=== PATIENT | male | born 1955 | race Caucasian/White ===

== ENCOUNTER 2016-09-02 14:46 | Inpatient (IN) | payer OTHER ==
[2016-09-02] VITALS (8 sets, daily range): BP systolic 115–147; BP diastolic 55–73; PULSE 94–105; RESP 13–22; TEMP 96.9; Ht 182.9 cm; Wt 110.0 kg
[~2016-09-02] VITALS: Ht 182.9 cm; Wt 110.0 kg
[~2016-09-02 14:46] MED LIST: ADV25050 INH; ALBU18HF INHALATION; HYD25 PO; METH10TA2 PO; PRED20TA PO; Thiamine Hcl PO
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
[2016-09-02] MEDS ORDERED: ONDANSETRON 4 MG INJ IV STA (15:06)
[2016-09-02] MEDS ORDERED: SOD CHLORIDE 0.9% 1,000 ML IV ONE ×2 (15:30→16:00)
[2016-09-02 15:33] LABS: ADD SCAN DIFF NO
[2016-09-02 15:35] LABS: ABNORMAL IP MESSAGE 1; HEMATOCRIT 14.1 % (42.0-52.0); MEAN CORPUSCULAR HEMOGLOBIN 24.7 pg (29.0-33.0); MEAN CORPUSCULAR HGB CONC 28.4 g/dl (32.0-37.0); MEAN PLATELET VOLUME 13.4 fl (7.4-10.4); PLATELET COUNT 162 10^3/UL (140-415); RED BLOOD COUNT 1.62 10^6/ul (4.70-6.10); RED CELL DISTRIBUTION WIDTH 18.1 % (11.5-14.5); WHITE BLOOD COUNT 7.7 10^3/ul (4.8-10.8)
[2016-09-02] MEDS ORDERED: TAMS0.4C2 PO (15:36)
[2016-09-02] MEDS ORDERED: ALPR0.5T PO (15:36)
[2016-09-02] MEDS ORDERED: TRAM-40 PO (15:37)
[2016-09-02] MEDS ORDERED: FURO20TA3 PO (15:37)
[2016-09-02] MEDS ORDERED: VALS320T11 PO (15:40)
[2016-09-02] MEDS ORDERED: METO25TA7 PO (15:40)
[2016-09-02 15:45] LABS: INR 1.71; PROTIME 20.2 Sec (12.2-14.2); PT RATIO 1.6
[2016-09-02 15:57] LABS: ALBUMIN 2.2 g/dl (3.3-4.9); CHLORIDE 107 mmol/L (97-110)
[2016-09-02 15:58] LABS: POTASSIUM 4.9 mmol/L (3.5-5.1); SODIUM 142 mmol/L (135-144)
[2016-09-02 16:00] LABS: ALANINE AMINOTRANSFERASE 20 IU/L (13-69); ALBUMIN/GLOBULIN RATIO 0.66; ALKALINE PHOSPHATASE 67 IU/L (42-121); ANION GAP 19 (8-16); ASPARTATE AMINO TRANSFERASE 28 IU/L (15-46); BILIRUBIN,INDIRECT 0.4 mg/dl (0-1.1); BILIRUBIN,TOTAL 0.4 mg/dl (0.2-1.3); BLOOD UREA NITROGEN 22 mg/dl (7-20); CARBON DIOXIDE 21 mmol/L (21-31); CREATININE 0.92 mg/dl (0.61-1.24); GLUCOSE 149 mg/dl (70-220); TOTAL PROTEIN 5.5 g/dl (6.1-8.1)
[2016-09-02] MEDS ORDERED: LIDOCAINE 1% (MDV) 20 ML INJ SC ONE (16:00)
[2016-09-02 16:01] LABS: CALCIUM 7.8 mg/dl (8.4-10.2)
[2016-09-02 16:15] LABS: TROPONIN-I < 0.012 ng/ml (0.00-0.12)
[2016-09-02 16:31] LABS: BARBITURATES Negative (NEGATIVE); BENZODIAZEPINES Positive (NEGATIVE); CANNABINOIDS Negative (NEGATIVE); COCAINE Negative (NEGATIVE); OPIATES Positive (NEGATIVE)
[2016-09-02 16:31] LABS: ETHANOL < 10.0 mg/dl
[2016-09-02] MEDS ORDERED: OCTREOTIDE 50 MCG in SOD CHLORIDE 0.9% 25 ML IVPB STA (16:32)
[2016-09-02] MEDS ORDERED: PANTOPRAZOLE IV 80 MG in SOD CHLORIDE 0.9% 100 ML IV STA (16:32)
[2016-09-02] MEDS ORDERED: PANTOPRAZOLE IV 80 MG in SOD CHLORIDE 0.9% 100 ML IVPB STA (16:32)
[2016-09-02] MEDS ORDERED: OCTREOTIDE 500 MCG in SOD CHLORIDE 0.9% 49 ML IV STA (16:32)
[2016-09-02 16:42] LABS: LYMPHOCYTES # 0.8 10^3/ul (0.8-2.9); NEUTROPHIL # 6.9 10^3/ul (1.6-7.5)
[2016-09-02 16:46] LABS: ANISOCYTOSIS 2+; POIKILOCYTOSIS 1+
[2016-09-02 16:47] LABS: PLATELET ESTIMATE PLT APPEAR ADEQUATE; POLYCHROMASIA 1+
--- NOTE | 2016-09-02 17:30 | RADRPT ---
PROCEDURE: XR Chest. CLINICAL INDICATION: PICC line placement TECHNIQUE: Chest AP portable. COMPARISON: 09/16/2015 FINDINGS: Nasogastric tube in the stomach. Right arm PICC line with tip in mid superior vena cava. The mediastinal structures are unremarkable. There is calcification of the thoracic aorta (consiste nt with atherosclerosis). There is mild cardiomegaly. The pulmonary vascularity is normal. There are low lung volumes. There is bibasilar subsegmental atelectasis. The pleural spaces are unremarkabl e. There are senescent changes of the axial skeleton. IMPRESSION: Mild cardiomegaly Low lung volumes Bibasilar subsegmental atelectasis. Nasogastric tube in the stomach. Right arm PICC line with tip in mid superior vena cava RPTAT: HGDB .Mark Stephens MD, Date Time Electronically viewed and signed by .Mark Stephens MD, on 09/02/2016 17:29 .B/
--- NOTE | 2016-09-02 18:14 | RADRPT ---
PROCEDURE: Ultrasound guidance for placement of needle in right upper extremity vein. CLINICAL INDICATION: Venous access. TECHNIQUE: Limited sonography of the right upper extremity was performed. Ultrasound images were recorded and stored in the patient's medical record. COMPARISON: None. FINDINGS: The ultrasound images demonstrate a patent right upper extremity vein. The PICC line was inserted b y the PICC line nurse. IMPRESSION: 1. Ultrasound guidance for a needle placement in a right upper extremity vein. 2. The visualized right upper extremity vein is patent. RPTAT: QQ .Misha Dill MD, MD Date Time Electronically viewed and signed by .Misha Dill MD, MD on 09/02/2016 18:14 .R/
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
[2016-09-02] MEDS ORDERED: PROPOFOL 20 ML ONE ×2 (20:16)
[2016-09-02] MEDS ORDERED: LIDOCAINE 2% (SDV) 5 ML INJ ONE (20:17)
[2016-09-02] MEDS: PANTOPRAZOLE IV 80 MG in SOD CHLORIDE 0.9% 100 ML IV SCH (23:24)
[2016-09-02] MEDS: OCTREOTIDE 1 MG in SOD CHLORIDE 0.9% 95 ML IV SCH (23:24)
[2016-09-03] VITALS (36 sets, daily range): BP systolic 89–154; BP diastolic 45–108; PULSE 73–101; RESP 11–23
[2016-09-03] MEDS: METOCLOPRAMIDE 10 MG INJ IV SCH ×5 (01:26→23:50)
--- NOTE | 2016-09-03 03:48 | HP ---
DATE OF ADMISSION: 09/02/2016 REASON FOR ADMISSION: Low blood pressure, severe anemia. HISTORY OF PRESENT ILLNESS: This is a 61-year-old gentleman with a prior extensive history of alcoh ol abuse who comes in with marked weakness and malaise with black melenic stools with admission hemo globin of 4.0. Despite this, the patient was hemodynamically stable on admission. On further quest ioning, he has an extensive alcohol history and states he last drank approximately 1 year ago. Prio r to that, he had drank heavily. The last GI bleed, per patient, was 3 weeks ago, although he canno t recall which hospital he was seen at. In the emergency room, the patient had a PICC line placed a nd is currently in the process of receiving 4 units of packed red blood cells. In addition, Dr. David alicea has been contacted from GI service for emergent evaluation and likely endoscopy this evening. PAST MEDICAL HISTORY: Alcohol abuse, history of tobacco use, possible chronic obstructive pulmonary disease. MEDICATIONS: Per chart. ALLERGIES: NONE. SYSTEMS REVIEW: A 12-point review of systems is negative other than that mentioned above. PHYSICAL EXAMINATION: GENERAL: Elderly-appearing gentleman, awake, alert, oriented, talking in full and complete sentence s. VITAL SIGNS: Currently afebrile. Pulse is 100, blood pressure 92/60, O2 saturation 96% on room air . NECK: Supple. No JVD or lymphadenopathy. CARDIAC: S1, S2, no added sounds or murmurs. CHEST: Diminished air entry bilaterally. ABDOMEN: Soft, nontender. No guarding or rebound. EXTREMITIES: No cyanosis, clubbing, 1+ edema. NEUROLOGIC: Grossly intact. No focal deficits. LABORATORY DATA: White count 7.7, hemoglobin 4, platelets of 162. BUN 22, creatinine 0.92. INR wa s 1.7. Urine was positive for opiates and benzodiazepines. Stool occult blood is positive. DIAGNOSTIC DATA: Chest x-ray is pending at the time of this dictation. IMPRESSION: Acute gastrointestinal bleed, likely secondary to esophageal varices in a patient with an extensive tobacco history with probable cirrhosis with portal hypertension. THE PATIENT WILL NEED: 1. Aggressive volume resuscitation including IV fluids, packed red blood cells. 2. Octreotide drip. 3. Protonix drip. 4. Correction of elevated INR. 5. DVT and GI prophylaxis. 6. Obtain old notes from recent admission. Dictated By: CARINE SANCHES MD SV/ERICKA Conf#: [id number] DID#: [id number]
[2016-09-03 03:55] LABS: ADD SCAN DIFF NO
[2016-09-03 03:57] LABS: ABNORMAL IP MESSAGE 1; EOSINOPHILS % 0.1 % (0.0-7.0); HEMATOCRIT 17.1 % (42.0-52.0); LYMPHOCYTES # 2.1 10^3/ul (0.8-2.9); LYMPHOCYTES % 24.5 % (15.0-51.0); MEAN CORPUSCULAR HEMOGLOBIN 27.2 pg (29.0-33.0); MEAN CORPUSCULAR HGB CONC 32.2 g/dl (32.0-37.0); MEAN CORPUSCULAR VOLUME 84.7 fl (82.0-101.0); MEAN PLATELET VOLUME 13.3 fl (7.4-10.4); MONOCYTES % 11.8 % (0.0-11.0); NEUTROPHIL # 5.5 10^3/ul (1.6-7.5); NUCLEATED RED BLOOD CELLS% 0.2 /100WBC (0.0-0.0); PLATELET COUNT 93 10^3/UL (140-415); RED BLOOD COUNT 2.02 10^6/ul (4.70-6.10); RED CELL DISTRIBUTION WIDTH 16.2 % (11.5-14.5); WHITE BLOOD COUNT 8.7 10^3/ul (4.8-10.8)
[2016-09-03 04:00] LABS: HEMOGLOBIN 5.5 g/dl (14.0-18.0)
[2016-09-03 04:10] LABS: POTASSIUM 4.2 mmol/L (3.5-5.1)
[2016-09-03 04:12] LABS: CREATININE 0.85 mg/dl (0.61-1.24)
[2016-09-03 04:13] LABS: CALCIUM 7.5 mg/dl (8.4-10.2); PHOSPHORUS 3.2 mg/dl (2.5-4.9)
[2016-09-03] MEDS: PANTOPRAZOLE IV 80 MG in SOD CHLORIDE 0.9% 100 ML IV SCH ×3 (04:30→20:50)
[2016-09-03 04:52] LABS: INR 1.69; PT RATIO 1.6
[2016-09-03 04:53] LABS: PARTIAL THROMBOPLASTIN TIME 31.5 Sec (25.0-35.0); THROMBIN TIME 19.8 SEC (13.8-19.1)
--- NOTE | 2016-09-03 07:57 | RADRPT ---
PROCEDURE: XR Chest. CLINICAL INDICATION: copd TECHNIQUE: Portable single view of the chest COMPARISON: 09/02 FINDINGS: Nasogastric tube has been removed. Right PICC line remains in place. Cardiomegaly and aortic calci fication is again seen. Lung volumes are slightly reduced compared with prior. Pulmonary vascular congestion with probable interstitial edema is likely unchanged. No focal infiltrate or pleural eff usion. IMPRESSION: Removal of nasogastric tube. Otherwise likely no significant interval change. RPTAT: [facility] Physician Mariella Date Time Electronically viewed and signed by Polina Madera Physician on 09/03/2016 06:42 LE/
[2016-09-03 09:58] LABS: HEMATOCRIT 21.8 % (42.0-52.0); HEMOGLOBIN 7.3 g/dl (14.0-18.0)
--- NOTE | 2016-09-03 10:40 | PN ---
Date/Time of Note Date/Time of Note DATE: 09/03/16 TIME: 10:20 Assessment/Plan VTE Prophylaxis VTE Prophylaxis Intervention: SCD's Lines/Catheters IV C[facility]ter Type (from [facility]): Peripheral IV Urinary Cath still in place: Yes Reason Cath still needed: other (indicate) Assessment/Plan Chief Complaint/Hosp Course Assessment and plan 1. acute gastrointestinal bleed, likely secondary to esophageal varices in a patient with an extensive tobacco and alcohol consumption history with probable cirrhosis with portal hypertension Mattress Weaver has been consulted Status post upper EGD, continue Protonix and octreotide drip 2. Acute anemia Likely secondary to #1, status post transfusion of packed red blood cell, follow hemoglobin hematocrit status post transfusion 3. Alcohol dependency Alcohol cessation has been advised, we will place the patient on Ativan as needed 4. Acute encephalopathy Improved 5. Prerenal azotemia Likely secondary to GI bleed and anemia, continue IV fluid, follow-up renal panel 6. Essential hypertension. Continue to monitor 7. COPD Stable 8. Hypoalbuminemia Stable, continue to monitor We will continue monitor patient closely for recommendation management treatment as clinical course Problems: Subjective 24 Hr Interval Summary Free Text/Dictation Patient denies of any chest pain or shortness of breath Status post upper endoscopy No nausea vomiting On Protonix and octreotide Exam/Review of Systems Vital Signs Vitals Vital Signs Date Time Temp Pulse Resp B/P Pulse Ox O2 Delivery O2 Flow Rate FiO2 09/03/16 08:00 87 09/03/16 07:00 11 103/66 100 Nasal Cannula 09/03/16 04:00 98.8 09/02/16 22:00 4.0 Intake and Output 09/02/16 09/02/16 09/03/16 15:00 23:00 07:00 Intake Total 410 ml 105 ml Output Total 610 ml 460 ml Balance -200 ml -355 ml Exam General: The patient is well-developed, Not in acute distress. HEENT: Atraumatic, normocephalic. The pupils are equal and round . Neck: Supple with full range of motion. Chest: Normal expansion of the thorax during inspiration Lungs: Clear to auscultation bilaterally Heart: Normal S1-S2, Regular rhythm and rate. Abdomen: Soft , nontender, nondistended , bowel sounds are present. Extremities: Normal to inspection, no edema no cyanosis Neurologic: Normal mental status,The patient is awake, alert Results Result Diagram: 09/03/16 0936 09/03/16 0345 Results 24 hrs Laboratory Tests Test 09/02/16 15:19 09/02/16 15:20 09/02/16 15:30 09/02/16 20:20 Activated Partial Thromboplast Time 27.0 Alanine Aminotransferase (ALT/SGPT) 20 Albumin 2.2 L Albumin/Globulin Ratio 0.66 Alkaline Phosphatase 67 Anion Gap 19 H Anisocytosis 2+ Aspartate Amino Transf (AST/SGOT) 28 Blood Urea Nitrogen 22 H Calcium Level 7.8 L Carbon Dioxide Level 21 Chloride Level 107 Creatinine 0.92 Direct Bilirubin 0.00 Ethyl Alcohol Level < 10.0 Giant Platelets OCCASIONAL Globulin 3.30 H Glucose Level 149 Hematocrit 14.1 #L Hemoglobin 4.0 #*L INR International Normalized Ratio 1.71 Indirect Bilirubin 0.4 Large Platelets FEW Lipase 164 Lymphocytes # 0.8 Lymphocytes % 10.0 L Macrocytosis 1+ Mean Corpuscular Hemoglobin 24.7 L Mean Corpuscular Hemoglobin Concent 28.4 L Mean Corpuscular Volume 87.0 Mean Platelet Volume 13.4 #H Neutrophils # 6.9 Neutrophils % 90.0 H Platelet Count 162 Platelet Estimate PLT APPEAR ADEQUATE Poikilocytosis 1+ Polychromasia 1+ Potassium Level 4.9 Prothrombin Time 20.2 H Prothrombin Time Ratio 1.6 Red Blood Count 1.62 #L Red Cell Distribution Width 18.1 H Sodium Level 142 Total Bilirubin 0.4 Total Protein 5.5 L Troponin I < 0.012 White Blood Count 7.7 # Stool Occult Blood POSITIVE Urine Amphetamines Screen Negative Urine Barbiturates Negative Urine Benzodiazepines Screen Positive Urine Cannabinoids Negative Urine Cocaine Screen Negative Urine Opiates Screen Positive Ammonia 131 #H Test 09/03/16 03:45 09/03/16 09:36 Activated Partial Thromboplast Time 31.5 Anion Gap 12 # Basophils # 0.0 Basophils % 0.0 Blood Urea Nitrogen 25 H Calcium Level 7.5 L Carbon Dioxide Level 27 Chloride Level 109 Creatinine 0.85 Eosinophils # 0.0 Eosinophils % 0.1 Glucose Level 128 Hematocrit 17.1 #L 21.8 #L Hemoglobin 5.5 #*L 7.3 #L INR International Normalized Ratio 1.69 Lymphocytes # 2.1 Lymphocytes % 24.5 Magnesium Level 2.0 Mean Corpuscular Hemoglobin 27.2 L Mean Corpuscular Hemoglobin Concent 32.2 Mean Corpuscular Volume 84.7 Mean Platelet Volume 13.3 H Monocytes # 1.0 H Monocytes % 11.8 H Neutrophils # 5.5 Neutrophils % 63.0 Nucleated Red Blood Cells # 0.0 Nucleated Red Blood Cells % 0.2 H Phosphorus Level 3.2 Platelet Count 93 L Potassium Level 4.2 Prothrombin Time 20.0 H Prothrombin Time Ratio 1.6 Red Blood Count 2.02 #L Red Cell Distribution Width 16.2 H Sodium Level 144 Thrombin Time 19.8 H White Blood Count 8.7 Medications Medications Current Medications Octreotide Acetate 1 mg/ Sodium Chloride 100 ml @ 5 mls/hr Q20H IV Last administered on 09/02/16 23:24; Admin Dose 5 MLS/HR; Start 09/02/16 at 18:30 Pantoprazole/ Sodium Chloride (Protonix Iv/NS) 100 ml @ 10 mls/hr Q10H IV Last administered on 09/02/16 23:24; Admin Dose 10 MLS/HR; Start 09/02/16 at 18 :30 Metoclopramide HCl (Reglan) 10 mg Q6 IV Last administered on 09/03/16 06:00; Admin Dose 10 MG; Start 09/03/16 at 00:00 IV Flush (NS 10 ml) 10 ml PRN PRN IV IV PROTOCOL; Start 09/03/16 at 10:30; Status LINDA GILES MD Sep 03, 2016 10:40
--- NOTE | 2016-09-03 14:26 | PN ---
Date/Time of Note Date/Time of Note DATE: 09/03/16 TIME: 14:17 Assessment/Plan VTE Prophylaxis VTE Prophylaxis Intervention: SCD's Lines/Catheters IV Catheter Type (from Nrs): Peripheral IV Urinary Cath still in place: Yes Reason Cath still needed: other (indicate) (incontinence) Assessment/Plan Chief Complaint/Hosp Course 61 y/o male with history of COPD,chronic alcohol abuse(stopped drinking 1 year ago),who was seen at the ER because of weakness and hematemesis which started few hours prior to consult.In the ER patient had hematemesis approximately 800 cc.Patient presently is undergoing blood transfusion ,protonix and octreotide drip were started.Present hemoglobin is 4.Patient denies any hematochezia, dyspnea or melena Problems: Assessment/Plan Assessment Acute Anemia stable transfused 5 units of PRBC Upper GI bleed Esophageal varices Cirrhosis of liver Hypotension stable HX of COPD HX of Alcoholism Plan S/P EGD for colonoscopy Correct anemia Octreotide drip/protonix drip Monitor H and H q 6 Subjective 24 Hr Interval Summary Free Text/Dictation Course reviewed with nursing staff Patient is confused transfused total 6 units PRBC,latest hemoglobin 7.3 S/P EGD esophageal varices,old clots greater curvature no bleededs identified,no active bleeding still on protonix and octreotide drip.no hematocheizia,no hematemesis Exam/Review of Systems Vital Signs Vitals Vital Signs Date Time Temp Pulse Resp B/P Pulse Ox O2 Delivery O2 Flow Rate FiO2 09/03/16 12:00 82 09/03/16 10:00 14 123/63 100 Room Air 09/03/16 08:00 2.0 09/03/16 08:00 98.7 Intake and Output 09/02/16 09/02/16 09/03/16 15:00 23:00 07:00 Intake Total 410 ml 105 ml Output Total 610 ml 460 ml Balance -200 ml -355 ml Exam Constitutional: alert, oriented, well developed Psych: confused Head: atraumatic, normocephalic ENMT: other (NGT in placed) Neck: non-tender, supple Respiratory: clear to auscultation, normal air movement Cardiovascular: nl pulses, regular rate and rhythm Gastrointestinal: bowel sounds, nl liver, spleen, non-tender, soft, surgical scars (midline scar), No ascites, No firm, No hepatomegaly, No mass, No rebound or guarding Musculoskeletal: nl extremities to inspection, nl gait and stance Extremities: normal pulses Neurological: confused, Results Result Diagram: 09/03/16 0936 09/03/16 0345 Results 24 hrs Laboratory Tests Test 09/02/16 15:19 09/02/16 15:20 09/02/16 15:30 09/02/16 20:20 Activated Partial Thromboplast Time 27.0 Alanine Aminotransferase (ALT/SGPT) 20 Albumin 2.2 L Albumin/Globulin Ratio 0.66 Alkaline Phosphatase 67 Anion Gap 19 H Anisocytosis 2+ Aspartate Amino Transf (AST/SGOT) 28 Blood Urea Nitrogen 22 H Calcium Level 7.8 L Carbon Dioxide Level 21 Chloride Level 107 Creatinine 0.92 Direct Bilirubin 0.00 Ethyl Alcohol Level < 10.0 Giant Platelets OCCASIONAL Globulin 3.30 H Glucose Level 149 Hematocrit 14.1 #L Hemoglobin 4.0 #*L INR International Normalized Ratio 1.71 Indirect Bilirubin 0.4 Large Platelets FEW Lipase 164 Lymphocytes # 0.8 Lymphocytes % 10.0 L Macrocytosis 1+ Mean Corpuscular Hemoglobin 24.7 L Mean Corpuscular Hemoglobin Concent 28.4 L Mean Corpuscular Volume 87.0 Mean Platelet Volume 13.4 #H Neutrophils # 6.9 Neutrophils % 90.0 H Platelet Count 162 Platelet Estimate PLT APPEAR ADEQUATE Poikilocytosis 1+ Polychromasia 1+ Potassium Level 4.9 Prothrombin Time 20.2 H Prothrombin Time Ratio 1.6 Red Blood Count 1.62 #L Red Cell Distribution Width 18.1 H Sodium Level 142 Total Bilirubin 0.4 Total Protein 5.5 L Troponin I < 0.012 White Blood Count 7.7 # Stool Occult Blood POSITIVE Urine Amphetamines Screen Negative Urine Barbiturates Negative Urine Benzodiazepines Screen Positive Urine Cannabinoids Negative Urine Cocaine Screen Negative Urine Opiates Screen Positive Ammonia 131 #H Test 09/03/16 03:45 09/03/16 09:36 Activated Partial Thromboplast Time 31.5 Anion Gap 12 # Basophils # 0.0 Basophils % 0.0 Blood Urea Nitrogen 25 H Calcium Level 7.5 L Carbon Dioxide Level 27 Chloride Level 109 Creatinine 0.85 Eosinophils # 0.0 Eosinophils % 0.1 Glucose Level 128 Hematocrit 17.1 #L 21.8 #L Hemoglobin 5.5 #*L 7.3 #L INR International Normalized Ratio 1.69 Lymphocytes # 2.1 Lymphocytes % 24.5 Magnesium Level 2.0 Mean Corpuscular Hemoglobin 27.2 L Mean Corpuscular Hemoglobin Concent 32.2 Mean Corpuscular Volume 84.7 Mean Platelet Volume 13.3 H Monocytes # 1.0 H Monocytes % 11.8 H Neutrophils # 5.5 Neutrophils % 63.0 Nucleated Red Blood Cells # 0.0 Nucleated Red Blood Cells % 0.2 H Phosphorus Level 3.2 Platelet Count 93 L Potassium Level 4.2 Prothrombin Time 20.0 H Prothrombin Time Ratio 1.6 Red Blood Count 2.02 #L Red Cell Distribution Width 16.2 H Sodium Level 144 Thrombin Time 19.8 H White Blood Count 8.7 Medications Medications Current Medications Octreotide Acetate 1 mg/ Sodium Chloride 100 ml @ 5 mls/hr Q20H IV Last administered on 09/02/16 23:24; Admin Dose 5 MLS/HR; Start 09/02/16 at 18:30 Pantoprazole/ Sodium Chloride (Protonix Iv/NS) 100 ml @ 10 mls/hr Q10H IV Last administered on 09/03/16 13:48; Admin Dose 10 MLS/HR; Start 09/02/16 at 18 :30 Metoclopramide HCl (Reglan) 10 mg Q6 IV Last administered on 09/03/16 12:58; Admin Dose 10 MG; Start 09/03/16 at 00:00 IV Flush (NS 10 ml) 10 ml PRN PRN IV IV PROTOCOL; Start 09/03/16 at 10:30 Alprazolam (Xanax) 0.5 mg Q24H PRN PO ANXIETY; Start 09/03/16 at 10:30 Tamsulosin HCl 0.4 mg 0.4 mg DAILY PO ; Start 09/04/16 at 09:00 Multivitamins/ Thiamine HCl/ Folic Acid/Sodium Chloride (Mvi-12 Adult/ Vitamin B1/Folic Acid/NS) 1,011.2 ml @ 60 mls/hr DAILY@09 IVPB ; Start 09/04/16 at 09: 00 MILENA SPRINGER MD Sep 03, 2016 14:26
[2016-09-03 15:28] LABS: HEMATOCRIT 25.1 % (42.0-52.0); HEMOGLOBIN 8.4 g/dl (14.0-18.0)
[2016-09-03] MEDS ORDERED: PROPOFOL 0 ML ONE (15:40)
[2016-09-03] MEDS ORDERED: FENTAnyl 50 MCG/ML VIAL ONE (15:40)
[2016-09-03] MEDS: OCTREOTIDE 1 MG in SOD CHLORIDE 0.9% 95 ML IV SCH (19:00)
[2016-09-03 22:27] LABS: HEMATOCRIT 26.8 % (42.0-52.0); HEMOGLOBIN 8.9 g/dl (14.0-18.0)
[2016-09-04] VITALS (9 sets, daily range): BP systolic 126–150; BP diastolic 62–69; PULSE 83–98; RESP 16–20
[2016-09-04] MEDS: METOCLOPRAMIDE 10 MG INJ IV SCH ×3 (05:15→18:14)
--- NOTE | 2016-09-04 06:51 | GILP ---
DATE OF PROCEDURE: 09/02/2016 PROCEDURE: Emergency esophagogastroduodenoscopy BRIEF HISTORY AND INDICATIONS: The patient is being evaluated for hematemesis, new onset. Previous history of alcoholic liver disease. PREMEDICATION: Monitored anesthesia care by anesthesiologist. SURGEON: Milena Russo MD. INSTRUMENT USED: Olympus panendoscope. TECHNIQUE: After informed consent, with the patient/relatives understanding the procedure, its indic ations, potential risks and complications, including but not limited to: allergic reaction, bleeding , perforation or infection, and after all pertinent questions were answered to the patients satisfac tion, the patient/relatives signed witnessed informed consent. Following this, premedication was administered slowly IV push under careful cardiovascular and respi ratory monitoring with pulse oximetry, automatic blood pressure and youth nutritional monitor. Once the sedative effect was achieved the patient was place in the left lateral decubitus, the panen doscope was introduced and advanced under visual control. Careful examination of the upper gastrointestinal tract, both on insertion as well as withdrawal of the instrument disclosed the following findings: ESOPHAGUS: The distal esophagus shows grade I/IV esophageal varices with no stigmata of recent blee ding. STOMACH: Upon entrance to the stomach, air was insufflated, the gastric adam distended normally. There was a large amount of clots and old blood in the fundus of the stomach greater curvature which could not be suctioned out. No evidence of active bleeding or accumulation of blood is present. T he remainder of the gastric mucosa appears unremarkable with no ulcerations or any bleeding site dana ntified. PYLORUS: The pylorus is patent within normal limits. DUODENUM: The duodenal mucosa was carefully examined in the duodenal bulb as well as the second por tion of the duodenum and appears unremarkable with no evidence of duodenitis, ulcer or neoplasm. The instrument was then withdrawn, the patient tolerated the procedure well and was transfer out of the endoscopy suite awake, and in good condition to continue recovery under observation IMPRESSION: 1. Grade I/IV esophageal varices with no stigmata. 2. Old clots in the fundus of the stomach greater curvature obscure this area. No active accumulat ion of blood to suggest active bleeding is present. No bleeding lesion identified in the visualized upper gastrointestinal tract. PLAN: The patient will be continued with Protonix and octreotide drip, transfuse to a hemoglobin eq ual or higher than 7.5. Reglan will be added to his regimen. He will be reevaluated tomorrow. Dictated By: MILENA RUSSO MS/ERICKA Conf#: [id number] DID#: [id number]
[2016-09-04 07:35] LABS: HEMATOCRIT 26.6 % (42.0-52.0); HEMOGLOBIN 8.9 g/dl (14.0-18.0)
--- NOTE | 2016-09-04 07:47 | GILP ---
DATE OF PROCEDURE: 09/03/2016 DATE: 09/03/2016 NAME OF PROCEDURE: Esophagogastroduodenoscopy SURGEON: Milena Russo MD. HISTORY AND INDICATIONS: Patient with hematemesis yesterday and emergency endoscopy suboptimal due t o the presence of large amounts of blood and clots obscuring the greater curvature and fundus of the stomach. The patient was transfused and has stabilized. PREMEDICATION: Monitored anesthesia care by anesthesiologist. INSTRUMENT USED: Olympus endoscope. TECHNIQUE: After informed consent, with the patient/relatives understanding the procedure, its indic ations, potential risks and complications, including but not limited to: allergic reaction, bleeding , perforation or infection, and after all pertinent questions were answered to the patient's satisfa ction, the patient/relatives signed witnessed informed consent. Following this, premedication was administered slowly IV push under careful cardiovascular and respi ratory monitoring with pulse oximetry, automatic blood pressure and residential monitor. Once the sedative effect was achieved the patient was place in the left lateral decubitus, the panen doscope was introduced and advanced under visual control. Careful examination of the upper gastrointestinal tract, both on insertion as well as withdrawal of the instrument disclosed the following findings: ESOPHAGUS: The esophagus was remarkable for very small esophageal varices of no clinical significanc e. STOMACH: Upon entrance to the stomach air was insufflated, the gastric adam distended normally. At this time, the stomach is empty. Retroflexion disclosed the presence of large gastric varices. One of them has stigmata of recent bleeding. There is no active bleeding at the present time. The rem ainder of the stomach is unremarkable. PYLORUS: The pylorus appears patent and within normal limits, with no evidence of gastric outlet obs truction. DUODENUM: The duodenal mucosa was carefully examined in the duodenal bulb as well as the second port ion of the duodenum and appears unremarkable with no evidence of duodenitis, ulcer or neoplasm. The instrument was then withdrawn, the patient tolerated the procedure well and was transfer out of the endoscopy suite awake, and in good condition to continue recovery under observation IMPRESSION: 1. Large fundal gastric varices with stigmata of recent bleeding. 2. Small, clinically insignificant, esophageal varices. 3. No other potential bleeding source identified in the upper gastrointestinal tract. PLAN: The patient will be continued on present regimen with octreotide and Protonix drips. TIPS sh ould be considered; unfortunately is not available at [facility] at the present time. The p atient should be referred to a tertiary center for prophylactic TIPS as he has had at least 1 episod e of major gastrointestinal bleeding and the prognosis is extremely poor for additional episodes of gastric variceal bleeding which carry an extremely high mortality. Dictated By: MILENA WHEELER Conf#: [id number] DID#: [id number]
[2016-09-04] MEDS ORDERED: MULTIVITAMINS 10 ML, THIAMINE 100 MG, FOLIC ACID 1 MG in SOD CHLORIDE 0.9% 1,000 ML IVPB SCH (09:00)
[2016-09-04] MEDS: TAMSULOSIN (SR) 0.4 MG CAP PO SCH (09:00)
[2016-09-04 09:05] LABS: ADD SCAN DIFF NO
[2016-09-04 09:14] LABS: ALBUMIN 2.5 g/dl (3.3-4.9); POTASSIUM 3.6 mmol/L (3.5-5.1)
[2016-09-04 09:16] LABS: CREATININE 0.82 mg/dl (0.61-1.24)
[2016-09-04 09:17] LABS: ALBUMIN/GLOBULIN RATIO 0.73; BILIRUBIN,INDIRECT 1.4 mg/dl (0-1.1); BILIRUBIN,TOTAL 1.4 mg/dl (0.2-1.3); TOTAL PROTEIN 5.9 g/dl (6.1-8.1)
[2016-09-04 09:18] LABS: MAGNESIUM 2.1 mg/dl (1.7-2.5)
--- NOTE | 2016-09-04 09:23 | PN ---
Date/Time of Note Date/Time of Note DATE: 09/04/16 TIME: 09:10 Assessment/Plan VTE Prophylaxis VTE Prophylaxis Intervention: SCD's Lines/Catheters IV Catheter Type (from Nrsg): PICC Line Central line still needed: Yes Urinary Cath still in place: Yes Reason Cath still needed: other (indicate) (incontinent) Assessment/Plan Assessment/Plan Assessment Acute Anemia stable Hemoglobin 9.4 Upper GI bleed Esophageal varices grade 1/4 with no stigmata of bleeding Cirrhosis of liver EGD 09/03/16 Large fundal gastric varices with stigmata of recent bleeding.likely source of bleeding . Small, clinically insignificant, esophageal varices. No other potential bleeding source identified in the upper gastrointestinal trac HX of COPD HX of Alcoholism Plan Referral to tertiary hospital for TIPS Advance diet as tolerated Monitor H and H q 6 Subjective 24 Hr Interval Summary Free Text/Dictation Course reviewed with nursing staff Patient is confused episode of melena X1 but hemoglobin is 8.9 no hematemesis nor hematochezia EGD 09/03/16 Large fundal gastric varices with stigmata of recent bleeding. . Small, clinically insignificant, esophageal varices. No other potential bleeding source identified in the upper gastrointestinal tract. Exam/Review of Systems Vital Signs Vitals Vital Signs Date Time Temp Pulse Resp B/P Pulse Ox O2 Delivery O2 Flow Rate FiO2 09/04/16 08:21 97 09/04/16 04:00 99.0 16 126/69 97 09/04/16 00:00 Room Air 09/03/16 18:00 2.0 Intake and Output 09/03/16 09/03/16 09/04/16 15:00 23:00 07:00 Intake Total 700 ml 195 ml Output Total 1040 ml 300 ml Balance -340 ml -105 ml Exam Constitutional: awakeconfused, well developed Head: atraumatic, normocephalic ENMT: other (NGT in placed) Neck: non-tender, supple Respiratory: clear to auscultation, normal air movement Cardiovascular: nl pulses, regular rate and rhythm Gastrointestinal: bowel sounds, nl liver, spleen, non-tender, soft, surgical scars (midline scar), No ascites, No firm, No hepatomegaly, No mass, No rebound or guarding Musculoskeletal: nl extremities to inspection, nl gait and stance Extremities: normal pulses Neurological: confused, Results Result Diagram: 09/04/16 0655 09/03/16 0345 Results 24 hrs Laboratory Tests Test 09/03/16 09:36 09/03/16 14:55 09/03/16 22:05 09/04/16 06:55 Hematocrit 21.8 #L 25.1 L 26.8 L 26.6 L Hemoglobin 7.3 #L 8.4 L 8.9 L 8.9 L Medications Medications Current Medications Octreotide Acetate 1 mg/ Sodium Chloride 100 ml @ 5 mls/hr Q20H IV Last administered on 09/03/16 19:00; Admin Dose 5 MLS/HR; Start 09/02/16 at 18:30 Pantoprazole/ Sodium Chloride (Protonix Iv/NS) 100 ml @ 10 mls/hr Q10H IV Last administered on 09/03/16 20:50; Admin Dose 10 MLS/HR; Start 09/02/16 at 18 :30 Metoclopramide HCl (Reglan) 10 mg Q6 IV Last administered on 09/03/16 18:04; Admin Dose 10 MG; Start 09/03/16 at 00:00 IV Flush (NS 10 ml) 10 ml PRN PRN IV IV PROTOCOL; Start 09/03/16 at 10:30 Alprazolam (Xanax) 0.5 mg Q24H PRN PO ANXIETY; Start 09/03/16 at 10:30 Tamsulosin HCl 0.4 mg 0.4 mg DAILY PO ; Start 09/04/16 at 09:00 Multivitamins/ Thiamine HCl/ Folic Acid/Sodium Chloride (Mvi-12 Adult/ Vitamin B1/Folic Acid/NS) 1,011.2 ml @ 60 mls/hr DAILY@09 IVPB ; Start 09/04/16 at 09: 00 MILENA SPRINGER MD Sep 04, 2016 09:22 MILENA SPRINGER MD Sep 04, 2016 09:22
[2016-09-04 10:28] LABS: ABNORMAL IP MESSAGE 1; BASOPHILS % 0.3 % (0.0-2.0); EOSINOPHILS # 0.1 10^3/ul (0.0-0.5); EOSINOPHILS % 1.4 % (0.0-7.0); HEMATOCRIT 26.3 % (42.0-52.0); HEMOGLOBIN 8.9 g/dl (14.0-18.0); LYMPHOCYTES # 1.5 10^3/ul (0.8-2.9); LYMPHOCYTES % 20.7 % (15.0-51.0); MEAN CORPUSCULAR HEMOGLOBIN 28.5 pg (29.0-33.0); MEAN CORPUSCULAR HGB CONC 33.8 g/dl (32.0-37.0); MEAN CORPUSCULAR VOLUME 84.3 fl (82.0-101.0); MONOCYTE # 0.8 10^3/ul (0.3-0.9); MONOCYTES % 10.4 % (0.0-11.0); NEUTROPHIL # 4.7 10^3/ul (1.6-7.5); NUCLEATED RED BLOOD CELLS% 0.6 /100WBC (0.0-0.0); PLATELET COUNT 90 10^3/UL (140-415); RED BLOOD COUNT 3.12 10^6/ul (4.70-6.10); RED CELL DISTRIBUTION WIDTH 16.4 % (11.5-14.5); WHITE BLOOD COUNT 7.2 10^3/ul (4.8-10.8)
[2016-09-04 13:25] LABS: HEMATOCRIT 31.1 % (42.0-52.0)
--- NOTE | 2016-09-04 14:22 | PN ---
Date/Time of Note Date/Time of Note DATE: 09/04/16 TIME: 14:18 Assessment/Plan VTE Prophylaxis VTE Prophylaxis Intervention: other Lines/Catheters IV Catheter Type (from Nrs): PICC Line Central line still needed: Yes Urinary Cath still in place: Yes Reason Cath still needed: urinary retention Assessment/Plan Chief Complaint/Hosp Course Assessment and plan 1. acute gastrointestinal bleed, likely secondary to esophageal varices in a patient with an extensive tobacco and alcohol consumption history with probable cirrhosis with portal hypertension Bench Tool Maker has been consulted Status post upper EGD, continue Protonix and octreotide drip 2. Acute anemia Likely secondary to #1, status post transfusion of packed red blood cell, follow hemoglobin hematocrit status post transfusion 3. Alcohol dependency Alcohol cessation has been advised, continue on Ativan as needed 4. Acute encephalopathy Likely secondary to hepatic encephalopathy, started patient on lactulose, follow-up ammonia level 5. Essential hypertension. Continue to monitor 6. COPD Stable 7. Hypoalbuminemia Stable, continue to monitor We will continue monitor patient closely for recommendation management treatment as clinical course Problems: Subjective 24 Hr Interval Summary Free Text/Dictation Patient is altered and has required sitter Opens his eyes with touch stimuli Does not respond to verbal stimuli Exam/Review of Systems Vital Signs Vitals Vital Signs Date Time Temp Pulse Resp B/P Pulse Ox O2 Delivery O2 Flow Rate FiO2 09/04/16 12:16 87 09/04/16 04:00 99.0 16 126/69 97 09/04/16 00:00 Room Air 09/03/16 18:00 2.0 Intake and Output 09/03/16 09/03/16 09/04/16 15:00 23:00 07:00 Intake Total 700 ml 195 ml Output Total 1040 ml 300 ml Balance -340 ml -105 ml Exam General: The patient is altered although not agitated HEENT: Atraumatic, normocephalic. The pupils are equal and round . Neck: Supple with full range of motion. Chest: Normal expansion of the thorax during inspiration Lungs: Clear to auscultation bilaterally Heart: Normal S1-S2, Regular rhythm and rate. Abdomen: Soft , nontender, nondistended , bowel sounds are present. Extremities: Normal to inspection, no edema no cyanosis Neurologic: Encephalopathic,The patient is arousable Results Result Diagram: 09/04/16 1250 09/04/16 0655 Results 24 hrs Laboratory Tests Test 3/21/17 14:55 09/03/16 22:05 09/04/16 06:55 09/04/16 12:50 Hemoglobin 8.4 L 8.9 L 8.9 L 10.0 L Hematocrit 25.1 L 26.8 L 26.3 L 31.1 L White Blood Count 7.2 Red Blood Count 3.12 #L Mean Corpuscular Volume 84.3 Mean Corpuscular Hemoglobin 28.5 L Mean Corpuscular Hemoglobin Concent 33.8 Red Cell Distribution Width 16.4 H Platelet Count 90 L Mean Platelet Volume 12.0 H Neutrophils % 65.0 Lymphocytes % 20.7 Monocytes % 10.4 Eosinophils % 1.4 Basophils % 0.3 Nucleated Red Blood Cells % 0.6 H Neutrophils # 4.7 Lymphocytes # 1.5 Monocytes # 0.8 Eosinophils # 0.1 Basophils # 0.0 Nucleated Red Blood Cells # 0.0 Sodium Level 144 Potassium Level 3.6 Chloride Level 108 Carbon Dioxide Level 28 Anion Gap 12 Blood Urea Nitrogen 17 Creatinine 0.82 Glucose Level 109 Calcium Level 8.0 L Magnesium Level 2.1 Total Bilirubin 1.4 H Direct Bilirubin 0.00 Indirect Bilirubin 1.4 H Aspartate Amino Transf (AST/SGOT) 74 #H Alanine Aminotransferase (ALT/SGPT) 29 Alkaline Phosphatase 102 # Total Protein 5.9 L Albumin 2.5 L Globulin 3.40 H Albumin/Globulin Ratio 0.73 Medications Medications Current Medications Octreotide Acetate 1 mg/ Sodium Chloride 100 ml @ 5 mls/hr Q20H IV Last administered on 09/03/16 19:00; Admin Dose 5 MLS/HR; Start 09/02/16 at 18:30 Pantoprazole/ Sodium Chloride (Protonix Iv/NS) 100 ml @ 10 mls/hr Q10H IV Last administered on 09/03/16 20:50; Admin Dose 10 MLS/HR; Start 09/02/16 at 18 :30 Metoclopramide HCl (Reglan) 10 mg Q6 IV Last administered on 09/03/16 18:04; Admin Dose 10 MG; Start 09/03/16 at 00:00 IV Flush (NS 10 ml) 10 ml PRN PRN IV IV PROTOCOL; Start 09/03/16 at 10:30 Alprazolam (Xanax) 0.5 mg Q24H PRN PO ANXIETY; Start 09/03/16 at 10:30 Tamsulosin HCl 0.4 mg 0.4 mg DAILY PO ; Start 09/04/16 at 09:00 Multivitamins/ Thiamine HCl/ Folic Acid/Sodium Chloride (Mvi-12 Adult/ Vitamin B1/Folic Acid/NS) 1,011.2 ml @ 60 mls/hr DAILY@09 IVPB ; Start 09/04/16 at 09: 00 Lactulose (Lactulose Enema) 100 ml Q8 [place] ; Start 09/04/16 at 14:30; Stop at 09:00; Status UNV Chlordiazepoxide (Librium) 25 mg Q4H PRN PO AGITATION/ANXIETY; Start 09/04/16 at 14:30; Status UNV LINDA GUEVARA MD Sep 04, 2016 14:22
[2016-09-04] MEDS ORDERED: CHLORDIAZEPOXIDE 25 MG CAP PO PRN (14:30)
[2016-09-04] MEDS: LACTULOSE ENEMA 1,000 ML BTL PR SCH ×2 (16:31→20:30)
[2016-09-04] MEDS: PANTOPRAZOLE IV 80 MG in SOD CHLORIDE 0.9% 100 ML IV SCH ×2 (18:14→20:30)
[2016-09-04] MEDS: OCTREOTIDE 1 MG in SOD CHLORIDE 0.9% 95 ML IV SCH (18:14)
[2016-09-04 18:42] LABS: HEMATOCRIT 26.7 % (42.0-52.0)
[2016-09-04] MEDS: MULTIVITAMINS 10 ML, THIAMINE 100 MG, FOLIC ACID 1 MG in SOD CHLORIDE 0.9% 1,000 ML IVPB SCH (20:37)
[2016-09-05] VITALS (11 sets, daily range): BP systolic 132–188; BP diastolic 61–89; PULSE 72–106; RESP 18–19
[2016-09-05] MEDS: LORAZEPAM 2 MG INJ IV PRN ×3 (00:13→23:08)
[2016-09-05] MEDS: METOCLOPRAMIDE 10 MG INJ IV SCH ×4 (00:18→17:57)
[2016-09-05 00:57] LABS: HEMATOCRIT 26.8 % (42.0-52.0)
[2016-09-05] MEDS: PANTOPRAZOLE IV 80 MG in SOD CHLORIDE 0.9% 100 ML IV SCH ×2 (04:09→17:56)
[2016-09-05] MEDS: LACTULOSE ENEMA 1,000 ML BTL PR SCH ×3 (06:27→23:08)
[2016-09-05] MEDS: OCTREOTIDE 1 MG in SOD CHLORIDE 0.9% 95 ML IV SCH (06:30)
[2016-09-05 07:04] LABS: HEMATOCRIT 27.7 % (42.0-52.0); HEMOGLOBIN 9.1 g/dl (14.0-18.0)
[2016-09-05] MEDS: TAMSULOSIN (SR) 0.4 MG CAP PO SCH (09:00)
[2016-09-05 09:14] LABS: ALBUMIN 2.5 g/dl (3.3-4.9)
[2016-09-05 09:15] LABS: POTASSIUM 3.5 mmol/L (3.5-5.1)
[2016-09-05 09:17] LABS: BILIRUBIN,INDIRECT 1.5 mg/dl (0-1.1); BILIRUBIN,TOTAL 1.5 mg/dl (0.2-1.3); CREATININE 0.86 mg/dl (0.61-1.24)
[2016-09-05 09:18] LABS: ALBUMIN/GLOBULIN RATIO 0.71; CALCIUM 7.9 mg/dl (8.4-10.2)
[2016-09-05 09:23] LABS: ADD SCAN DIFF NO
[2016-09-05 09:27] LABS: BASOPHILS % 0.4 % (0.0-2.0); EOSINOPHILS # 0.2 10^3/ul (0.0-0.5); EOSINOPHILS % 2.5 % (0.0-7.0); HEMATOCRIT 27.6 % (42.0-52.0); HEMOGLOBIN 9.1 g/dl (14.0-18.0); LYMPHOCYTES # 1.9 10^3/ul (0.8-2.9); LYMPHOCYTES % 23.3 % (15.0-51.0); MEAN CORPUSCULAR HEMOGLOBIN 28.4 pg (29.0-33.0); MEAN CORPUSCULAR VOLUME 86.3 fl (82.0-101.0); MEAN PLATELET VOLUME 12.4 fl (7.4-10.4); MONOCYTE # 0.9 10^3/ul (0.3-0.9); MONOCYTES % 10.3 % (0.0-11.0); NEUTROPHIL # 5.2 10^3/ul (1.6-7.5); NEUTROPHILS % 62.7 % (39.0-77.0); PLATELET COUNT 117 10^3/UL (140-415); RED CELL DISTRIBUTION WIDTH 16.8 % (11.5-14.5); WHITE BLOOD COUNT 8.3 10^3/ul (4.8-10.8)
[2016-09-05 14:52] LABS: HEMATOCRIT 27.6 % (42.0-52.0); HEMOGLOBIN 9.1 g/dl (14.0-18.0)
--- NOTE | 2016-09-05 16:16 | PN ---
Date/Time of Note Date/Time of Note DATE: 09/05/16 TIME: 16:14 Assessment/Plan VTE Prophylaxis VTE Prophylaxis Intervention: SCD's Lines/Catheters IV Catheter Type (from Nrs): PICC Line Central line still needed: Yes Urinary Cath still in place: Yes Reason Cath still needed: other (indicate) Assessment/Plan Chief Complaint/Hosp Course Assessment and plan 1. acute gastrointestinal bleed, likely secondary to esophageal varices in a patient with an extensive tobacco and alcohol consumption history with probable cirrhosis with portal hypertension Monitoring Specialist has been consulted Status post upper EGD, continue Protonix and octreotide drip 2. Acute anemia Likely secondary to #1, status post transfusion of packed red blood cell, follow hemoglobin hematocrit status post transfusion 3. Alcohol dependency Alcohol cessation has been advised, continue on Ativan as needed 4. Acute encephalopathy likely secondary to hepatic encephalopathy, continue lactulose, follow-up ammonia level, improving 5. Essential hypertension. Continue to monitor 6. COPD Stable 7. Hypoalbuminemia Stable, continue to monitor We will continue monitor patient closely for recommendation management treatment as clinical course Problems: Subjective 24 Hr Interval Summary Free Text/Dictation Patient is more awake and alert Mildly confused Has not been able to tolerate p.o. intake Exam/Review of Systems Vital Signs Vitals Vital Signs Date Time Temp Pulse Resp B/P Pulse Ox O2 Delivery O2 Flow Rate FiO2 09/05/16 12:36 106 09/05/16 12:21 98.4 19 174/88 98 09/05/16 04:00 Room Air 09/03/16 18:00 2.0 Intake and Output 09/04/16 09/04/16 09/05/16 15:00 23:00 07:00 Intake Total 0 ml Output Total 100 ml Balance -100 ml Exam General: The patient is encephalopathic, Not in acute distress. HEENT: Atraumatic, normocephalic. The pupils are equal and round . Neck: Supple with full range of motion. Chest: Normal expansion of the thorax during inspiration Lungs: Clear to auscultation bilaterally Heart: Normal S1-S2, Regular rhythm and rate. Abdomen: Soft , nontender, nondistended , bowel sounds are present. Extremities: Normal to inspection, no edema no cyanosis Neurologic: Encephalopathy,The patient is awake, alert , oriented to self only Results Result Diagram: 09/05/16 1435 09/05/16 0615 Results 24 hrs Laboratory Tests Test 09/04/16 18:19 09/05/16 00:41 09/05/16 06:15 09/05/16 14:35 Hemoglobin 9.0 L 9.0 L 9.1 L 9.1 L Hematocrit 26.7 L 26.8 L 27.6 L 27.6 L White Blood Count 8.3 Red Blood Count 3.20 L Mean Corpuscular Volume 86.3 Mean Corpuscular Hemoglobin 28.4 L Mean Corpuscular Hemoglobin Concent 33.0 Red Cell Distribution Width 16.8 H Platelet Count 117 #L Mean Platelet Volume 12.4 H Neutrophils % 62.7 Lymphocytes % 23.3 Monocytes % 10.3 Eosinophils % 2.5 Basophils % 0.4 Nucleated Red Blood Cells % 0.0 Neutrophils # 5.2 Lymphocytes # 1.9 Monocytes # 0.9 Eosinophils # 0.2 Basophils # 0.0 Nucleated Red Blood Cells # 0.0 Sodium Level 144 Potassium Level 3.5 Chloride Level 110 Carbon Dioxide Level 24 Anion Gap 14 Blood Urea Nitrogen 14 Creatinine 0.86 Glucose Level 96 Calcium Level 7.9 L Total Bilirubin 1.5 H Direct Bilirubin 0.00 Indirect Bilirubin 1.5 H Aspartate Amino Transf (AST/SGOT) 37 Alanine Aminotransferase (ALT/SGPT) 32 Alkaline Phosphatase 90 Ammonia 16 # Total Protein 6.0 L Albumin 2.5 L Globulin 3.50 H Albumin/Globulin Ratio 0.71 Medications Medications Current Medications Octreotide Acetate 1 mg/ Sodium Chloride 100 ml @ 5 mls/hr Q20H IV Last administered on 09/04/16 18:14; Admin Dose 5 MLS/HR; Start 09/02/16 at 18:30 Pantoprazole/ Sodium Chloride (Protonix Iv/NS) 100 ml @ 10 mls/hr Q10H IV Last administered on 09/05/16 04:09; Admin Dose 10 MLS/HR; Start 09/02/16 at 18 :30 Metoclopramide HCl (Reglan) 10 mg Q6 IV Last administered on 09/05/16 12:48; Admin Dose 10 MG; Start 09/03/16 at 00:00 IV Flush (NS 10 ml) 10 ml PRN PRN IV IV PROTOCOL; Start 09/03/16 at 10:30 Alprazolam (Xanax) 0.5 mg Q24H PRN PO ANXIETY; Start 09/03/16 at 10:30 Tamsulosin HCl (Flomax) 0.4 mg DAILY PO ; Start 09/04/16 at 09:00 Lactulose (Lactulose Enema) 100 ml Q8 [place] Last administered on 09/05/16 14:30; Admin Dose 100 ML; Start 09/04/16 at 16:00; Stop 09/06/16 at 09:00 Chlordiazepoxide 25 mg 25 mg Q4H PRN PO AGITATION/ANXIETY; Start 09/04/16 at 14 :30 Multivitamins/ Thiamine HCl/ Folic Acid/Sodium Chloride (Mvi-12 Adult/ Vitamin B1/Folic Acid/NS) 1,011.2 ml @ 60 mls/hr Q24H IVPB Last administered on 20:37; Admin Dose 60 MLS/HR; Start 09/04/16 at 20:00 Lorazepam (Ativan) 1 mg Q6H PRN IV AGITATION Last administered on 09/05/16 05: 23; Admin Dose 1 MG; Start 09/05/16 at 00:00 LINDA GUEVARA MD Sep 05, 2016 16:16
--- NOTE | 2016-09-05 17:38 | CONS ---
Date/Time of Note Date/Time of Note DATE: 09/05/16 TIME: 17:15 Assessment/Plan Assessment/Plan Additional Assessment/Plan Acute anemia Evaluate GI bleed versus chronic iron deficiency vs other etiology Monitor H&H every 8 hours, transfuse 2 units for hemoglobin less than 7.5 Monitor labs Continue PPI and Octreotide drips EGD: 1. Large fundal gastric varices with stigmata of recent bleeding. 2. Small , clinically insignificant, esophageal varices. 3. No other potential bleeding source identified in the upper gastrointestinal tract. Liver cirrhosis TIPS should be considered; unfortunately is not available at [facility] at the present time. The patient should be referred to a tertiary center for prophylactic TIPS as he has had at least 1 episode of major gastrointestinal bleeding and the prognosis is extremely poor for additional episodes of gastric variceal bleeding which carry an extremely high mortality. Case management consult ordered History of COPD Management per Primary History of alcoholism Receiving banana bag Encourage abstinence Hepatic encephalopathy Continue lactulose enemas Monitor ammonia level Further recommendations depend on clinical course Patient seen in collaboration with Dr. Russo Consultation Date/Type/Reason Admit Date/Time Sep 02, 2016 at 18:10 Initial Consult Date Type of Consultation: Gastroenterology Reason for Consultation Anemia 24 HR Interval Summary Free Text/Dictation Hemoglobin stable Case management consult in process for possible TIPS Exam/Review of Systems Vital Signs Vitals Vital Signs Date Time Temp Pulse Resp B/P Pulse Ox O2 Delivery O2 Flow Rate FiO2 09/05/16 16:28 98.2 100 19 188/80 95 09/05/16 04:00 Room Air 09/03/16 18:00 2.0 Intake and Output 09/04/16 09/04/16 09/05/16 15:00 23:00 07:00 Intake Total 0 ml Output Total 100 ml Balance -100 ml Exam Constitutional: awake, agitated Psych: nl mood/affect Head: normocephalic Eyes: EOMI, nl conjunctiva, nl lids ENMT: nl external ears & nose, nl lips & teeth, nl nasal mucosa & septum Respiratory: clear to auscultation, normal air movement Cardiovascular: regular rate and rhythm Gastrointestinal: soft, non tender Musculoskeletal: nl extremities to inspection Neurological: APPOINTMENT MANAGER II-XII intact Results Result Diagram: 09/05/16 1435 09/05/16 0615 Results 24 hrs Laboratory Tests Test 09/04/16 18:19 09/05/16 00:41 09/05/16 06:15 09/05/16 14:35 Hemoglobin 9.0 L 9.0 L 9.1 L 9.1 L Hematocrit 26.7 L 26.8 L 27.6 L 27.6 L White Blood Count 8.3 Red Blood Count 3.20 L Mean Corpuscular Volume 86.3 Mean Corpuscular Hemoglobin 28.4 L Mean Corpuscular Hemoglobin Concent 33.0 Red Cell Distribution Width 16.8 H Platelet Count 117 #L Mean Platelet Volume 12.4 H Neutrophils % 62.7 Lymphocytes % 23.3 Monocytes % 10.3 Eosinophils % 2.5 Basophils % 0.4 Nucleated Red Blood Cells % 0.0 Neutrophils # 5.2 Lymphocytes # 1.9 Monocytes # 0.9 Eosinophils # 0.2 Basophils # 0.0 Nucleated Red Blood Cells # 0.0 Sodium Level 144 Potassium Level 3.5 Chloride Level 110 Carbon Dioxide Level 24 Anion Gap 14 Blood Urea Nitrogen 14 Creatinine 0.86 Glucose Level 96 Calcium Level 7.9 L Total Bilirubin 1.5 H Direct Bilirubin 0.00 Indirect Bilirubin 1.5 H Aspartate Amino Transf (AST/SGOT) 37 Alanine Aminotransferase (ALT/SGPT) 32 Alkaline Phosphatase 90 Ammonia 16 # Total Protein 6.0 L Albumin 2.5 L Globulin 3.50 H Albumin/Globulin Ratio 0.71 Medications Medications Current Medications Octreotide Acetate 1 mg/ Sodium Chloride 100 ml @ 5 mls/hr Q20H IV Last administered on 09/04/16 18:14; Admin Dose 5 MLS/HR; Start 09/02/16 at 18:30 Pantoprazole/ Sodium Chloride (Protonix Iv/NS) 100 ml @ 10 mls/hr Q10H IV Last administered on 09/05/16 04:09; Admin Dose 10 MLS/HR; Start 09/02/16 at 18 :30 Metoclopramide HCl (Reglan) 10 mg Q6 IV Last administered on 09/05/16 12:48; Admin Dose 10 MG; Start 09/03/16 at 00:00 IV Flush (NS 10 ml) 10 ml PRN PRN IV IV PROTOCOL; Start 09/03/16 at 10:30 Alprazolam (Xanax) 0.5 mg Q24H PRN PO ANXIETY; Start 09/03/16 at 10:30 Tamsulosin HCl (Flomax) 0.4 mg DAILY PO ; Start 09/04/16 at 09:00 Lactulose (Lactulose Enema) 100 ml Q8 [place] Last administered on 09/05/16 14:30; Admin Dose 100 ML; Start 09/04/16 at 16:00; Stop 09/06/16 at 09:00 Chlordiazepoxide 25 mg 25 mg Q4H PRN PO AGITATION/ANXIETY; Start 09/04/16 at 14 :30 Multivitamins/ Thiamine HCl/ Folic Acid/Sodium Chloride (Mvi-12 Adult/ Vitamin B1/Folic Acid/NS) 1,011.2 ml @ 60 mls/hr Q24H IVPB Last administered on 20:37; Admin Dose 60 MLS/HR; Start 09/04/16 at 20:00 Lorazepam (Ativan) 1 mg Q6H PRN IV AGITATION Last administered on 09/05/16 05: 23; Admin Dose 1 MG; Start 09/05/16 at 00:00 DAVE AYALA Sep 05, 2016 17:26 Pantoprazole/ Sodium Chloride (Protonix Iv/NS) 100 ml @ 10 mls/hr Q10H IV Last administered on 09/05/16 04:09; Admin Dose 10 MLS/HR; Start 09/02/16 at 18 :30 Metoclopramide HCl (Reglan) 10 mg Q6 IV Last administered on 09/05/16 12:48; Admin Dose 10 MG; Start 09/03/16 at 00:00 IV Flush (NS 10 ml) 10 ml PRN PRN IV IV PROTOCOL; Start 09/03/16 at 10:30 Alprazolam (Xanax) 0.5 mg Q24H PRN PO ANXIETY; Start 09/03/16 at 10:30 Tamsulosin HCl (Flomax) 0.4 mg DAILY PO ; Start 09/04/16 at 09:00 Lactulose (Lactulose Enema) 100 ml Q8 [place] Last administered on 09/05/16 14:30; Admin Dose 100 ML; Start 09/04/16 at 16:00; Stop 09/06/16 at 09:00 Chlordiazepoxide 25 mg 25 mg Q4H PRN PO AGITATION/ANXIETY; Start 09/04/16 at 14 :30 Multivitamins/ Thiamine HCl/ Folic Acid/Sodium Chloride (Mvi-12 Adult/ Vitamin B1/Folic Acid/NS) 1,011.2 ml @ 60 mls/hr Q24H IVPB Last administered on 20:37; Admin Dose 60 MLS/HR; Start 09/04/16 at 20:00 Lorazepam (Ativan) 1 mg Q6H PRN IV AGITATION Last administered on 09/05/16 05: 23; Admin Dose 1 MG; Start 09/05/16 at 00:00 DAVE AYALA Sep 05, 2016 17:26 DAVE AYALA Sep 05, 2016 17:26
[2016-09-05 18:11] LABS: HEMATOCRIT 28.7 % (42.0-52.0); HEMOGLOBIN 9.5 g/dl (14.0-18.0)
[2016-09-05] MEDS: MULTIVITAMINS 10 ML, THIAMINE 100 MG, FOLIC ACID 1 MG in SOD CHLORIDE 0.9% 1,000 ML IVPB SCH (20:37)
[2016-09-06] VITALS (12 sets, daily range): BP systolic 103–151; BP diastolic 56–76; PULSE 90–105; RESP 18–20
[2016-09-06] MEDS: METOCLOPRAMIDE 10 MG INJ IV SCH ×4 (00:59→18:12)
[2016-09-06] MEDS: OCTREOTIDE 1 MG in SOD CHLORIDE 0.9% 95 ML IV SCH ×2 (02:30→08:29)
[2016-09-06] MEDS: LORAZEPAM 2 MG INJ IV PRN (02:53)
[2016-09-06] MEDS: PANTOPRAZOLE IV 80 MG in SOD CHLORIDE 0.9% 100 ML IV SCH ×3 (03:00→22:30)
[2016-09-06] MEDS: LACTULOSE ENEMA 1,000 ML BTL PR SCH (08:28)
[2016-09-06] MEDS: TAMSULOSIN (SR) 0.4 MG CAP PO SCH (08:28)
[2016-09-06 09:11] LABS: ADD SCAN DIFF NO
[2016-09-06 09:15] LABS: BASOPHILS % 0.4 % (0.0-2.0); EOSINOPHILS # 0.3 10^3/ul (0.0-0.5); EOSINOPHILS % 3.4 % (0.0-7.0); HEMATOCRIT 28.3 % (42.0-52.0); HEMOGLOBIN 9.2 g/dl (14.0-18.0); LYMPHOCYTES # 1.9 10^3/ul (0.8-2.9); LYMPHOCYTES % 23.5 % (15.0-51.0); MEAN CORPUSCULAR HEMOGLOBIN 28.2 pg (29.0-33.0); MEAN CORPUSCULAR HGB CONC 32.5 g/dl (32.0-37.0); MEAN CORPUSCULAR VOLUME 86.8 fl (82.0-101.0); MEAN PLATELET VOLUME 11.6 fl (7.4-10.4); MONOCYTE # 0.8 10^3/ul (0.3-0.9); NEUTROPHIL # 5.1 10^3/ul (1.6-7.5); NEUTROPHILS % 62.2 % (39.0-77.0); PLATELET COUNT 118 10^3/UL (140-415); RED BLOOD COUNT 3.26 10^6/ul (4.70-6.10); RED CELL DISTRIBUTION WIDTH 17.9 % (11.5-14.5); WHITE BLOOD COUNT 8.1 10^3/ul (4.8-10.8)
[2016-09-06 09:32] LABS: ALBUMIN 2.6 g/dl (3.3-4.9); POTASSIUM 3.2 mmol/L (3.5-5.1)
[2016-09-06 09:34] LABS: BILIRUBIN,INDIRECT 2.1 mg/dl (0-1.1); BILIRUBIN,TOTAL 2.1 mg/dl (0.2-1.3); CREATININE 0.78 mg/dl (0.61-1.24)
[2016-09-06 09:35] LABS: ALBUMIN/GLOBULIN RATIO 0.76
[2016-09-06 09:36] LABS: CALCIUM 7.9 mg/dl (8.4-10.2)
--- NOTE | 2016-09-06 11:12 | CONS ---
Date/Time of Note Date/Time of Note DATE: 09/06/16 TIME: 11:09 Assessment/Plan Assessment/Plan Additional Assessment/Plan Acute anemia Evaluate GI bleed versus chronic iron deficiency vs other etiology Monitor H&H every 8 hours, transfuse 2 units for hemoglobin less than 7.5 Monitor labs Continue PPI and Octreotide drips EGD: 1. Large fundal gastric varices with stigmata of recent bleeding. 2. Small , clinically insignificant, esophageal varices. 3. No other potential bleeding source identified in the upper gastrointestinal tract. Liver cirrhosis TIPS should be considered; unfortunately is not available at [facility] at the present time. The patient should be referred to a tertiary center for prophylactic TIPS as he has had at least 1 episode of major gastrointestinal bleeding and the prognosis is extremely poor for additional episodes of gastric variceal bleeding which carry an extremely high mortality. Case management consult ordered History of COPD Management per Primary History of alcoholism Receiving banana bag Encourage abstinence Hepatic encephalopathy Monitor ammonia level Further recommendations depend on clinical course Patient seen in collaboration with Dr. Russo Consultation Date/Type/Reason Admit Date/Time Sep 02, 2016 at 18:10 Type of Consultation: Gastroenterology 24 HR Interval Summary Free Text/Dictation Tolerating diet Advance to soft Ammonia within normal limits, lactulose enema DC Exam/Review of Systems Vital Signs Vitals Vital Signs Date Time Temp Pulse Resp B/P Pulse Ox O2 Delivery O2 Flow Rate FiO2 09/06/16 08:16 102 09/06/16 08:06 98.0 20 130/63 98 09/06/16 00:15 Room Air 09/03/16 18:00 2.0 Intake and Output 09/05/16 09/05/16 09/06/16 15:00 23:00 07:00 Intake Total 0 ml 525 ml Output Total 150 ml 300 ml 650 ml Balance -150 ml -300 ml -125 ml Exam Constitutional: Asleep, NAD Psych: nl mood/affect Head: normocephalic Eyes: EOMI, nl conjunctiva, nl lids ENMT: nl external ears & nose, nl lips & teeth, nl nasal mucosa & septum Respiratory: clear to auscultation, normal air movement Cardiovascular: regular rate and rhythm Gastrointestinal: soft, non tender Musculoskeletal: nl extremities to inspection Neurological: FINAL TOUCH UP PAINTER II-XII intact Results Result Diagram: 09/06/16 0900 09/06/16 0900 Results 24 hrs Laboratory Tests Test 09/05/16 14:35 09/05/16 18:00 09/06/16 09:00 Hemoglobin 9.1 L 9.5 L 9.2 L Hematocrit 27.6 L 28.7 L 28.3 L White Blood Count 8.1 Red Blood Count 3.26 L Mean Corpuscular Volume 86.8 Mean Corpuscular Hemoglobin 28.2 L Mean Corpuscular Hemoglobin Concent 32.5 Red Cell Distribution Width 17.9 H Platelet Count 118 L Mean Platelet Volume 11.6 H Neutrophils % 62.2 Lymphocytes % 23.5 Monocytes % 10.0 Eosinophils % 3.4 Basophils % 0.4 Nucleated Red Blood Cells % 0.0 Neutrophils # 5.1 Lymphocytes # 1.9 Monocytes # 0.8 Eosinophils # 0.3 Basophils # 0.0 Nucleated Red Blood Cells # 0.0 Sodium Level 141 Potassium Level 3.2 L Chloride Level 105 Carbon Dioxide Level 24 Anion Gap 15 Blood Urea Nitrogen 7 Creatinine 0.78 Glucose Level 147 # Calcium Level 7.9 L Total Bilirubin 2.1 H Direct Bilirubin 0.00 Indirect Bilirubin 2.1 H Aspartate Amino Transf (AST/SGOT) 36 Alanine Aminotransferase (ALT/SGPT) 29 Alkaline Phosphatase 89 Ammonia 26 Total Protein 6.0 L Albumin 2.6 L Globulin 3.40 H Albumin/Globulin Ratio 0.76 Medications Medications Current Medications Octreotide Acetate 1 mg/ Sodium Chloride 100 ml @ 5 mls/hr Q20H IV Last administered on 09/06/16 08:29; Admin Dose 5 MLS/HR; Start 09/02/16 at 18:30 Pantoprazole/ Sodium Chloride (Protonix Iv/NS) 100 ml @ 10 mls/hr Q10H IV Last administered on 09/06/16 03:00; Admin Dose 10 MLS/HR; Start 09/02/16 at 18 :30 Metoclopramide HCl (Reglan) 10 mg Q6 IV Last administered on 09/06/16 07:35; Admin Dose 10 MG; Start 09/03/16 at 00:00 IV Flush (NS 10 ml) 10 ml PRN PRN IV IV PROTOCOL; Start 09/03/16 at 10:30 Alprazolam (Xanax) 0.5 mg Q24H PRN PO ANXIETY; Start 09/03/16 at 10:30 Tamsulosin HCl (Flomax) 0.4 mg DAILY PO Last administered on 09/06/16 08:28; Admin Dose 0.4 MG; Start 09/04/16 at 09:00 Chlordiazepoxide 25 mg 25 mg Q4H PRN PO AGITATION/ANXIETY; Start 09/04/16 at 14 :30 Multivitamins/ Thiamine HCl/ Folic Acid/Sodium Chloride (Mvi-12 Adult/ Vitamin B1/Folic Acid/NS) 1,011.2 ml @ 60 mls/hr Q24H IVPB Last administered on 20:37; Admin Dose 60 MLS/HR; Start 09/04/16 at 20:00 Lorazepam (Ativan) 1 mg Q6H PRN IV AGITATION Last administered on 09/06/16 02: 53; Admin Dose 1 MG; Start 09/05/16 at 00:00 DAVE AYALA Sep 06, 2016 11:12
[2016-09-06] MEDS: RIFAXIMIN 550 MG TAB PO SCH ×2 (11:58→21:05)
--- NOTE | 2016-09-06 15:20 | PN ---
Date/Time of Note Date/Time of Note DATE: 09/06/16 TIME: 15:17 Assessment/Plan VTE Prophylaxis VTE Prophylaxis Intervention: SCD's Lines/Catheters IV Catheter Type (from Nrs): PICC Line Central line still needed: Yes Urinary Cath still in place: Yes Reason Cath still needed: other (indicate) Assessment/Plan Chief Complaint/Hosp Course Assessment and plan 1. acute gastrointestinal bleed, likely secondary to esophageal varices in a patient with an extensive tobacco and alcohol consumption history with probable cirrhosis with portal hypertension Truck Driver Instructor has been consulted Status post upper EGD, continue Protonix 2. Acute anemia Likely secondary to #1, status post transfusion of packed red blood cell, follow hemoglobin hematocrit status post transfusion 3. Alcohol dependency Alcohol cessation has been advised, continue on Ativan as needed 4. Acute encephalopathy likely secondary to hepatic encephalopathy, continue lactulose, follow-up ammonia level, improving 5. Essential hypertension. Continue to monitor 6. COPD Stable 7. Hypoalbuminemia Stable, continue to monitor We will continue monitor patient closely for recommendation management treatment as clinical course Problems: Subjective 24 Hr Interval Summary Free Text/Dictation Patient denies of any chest pain or shortness of breath Continues to have episodes of altered mental status Exam/Review of Systems Vital Signs Vitals Vital Signs Date Time Temp Pulse Resp B/P Pulse Ox O2 Delivery O2 Flow Rate FiO2 09/06/16 12:27 103 09/06/16 12:13 97.8 20 137/68 98 09/06/16 00:15 Room Air 09/03/16 18:00 2.0 Intake and Output 09/05/16 09/05/16 09/06/16 15:00 23:00 07:00 Intake Total 0 ml 525 ml Output Total 150 ml 300 ml 650 ml Balance -150 ml -300 ml -125 ml Exam General: The patient is well-developed, Not in acute distress. HEENT: Atraumatic, normocephalic. The pupils are equal and round . Neck: Supple with full range of motion. Chest: Normal expansion of the thorax during inspiration Lungs: Clear to auscultation bilaterally Heart: Normal S1-S2, Regular rhythm and rate. Abdomen: Soft , nontender, nondistended , bowel sounds are present. Extremities: Normal to inspection, no edema no cyanosis Neurologic: ,The patient is awake, alert, follow simple commands Results Result Diagram: 09/06/16 0900 09/06/16 0900 Results 24 hrs Laboratory Tests Test 09/05/16 18:00 09/06/16 09:00 Hemoglobin 9.5 L 9.2 L Hematocrit 28.7 L 28.3 L White Blood Count 8.1 Red Blood Count 3.26 L Mean Corpuscular Volume 86.8 Mean Corpuscular Hemoglobin 28.2 L Mean Corpuscular Hemoglobin Concent 32.5 Red Cell Distribution Width 17.9 H Platelet Count 118 L Mean Platelet Volume 11.6 H Neutrophils % 62.2 Lymphocytes % 23.5 Monocytes % 10.0 Eosinophils % 3.4 Basophils % 0.4 Nucleated Red Blood Cells % 0.0 Neutrophils # 5.1 Lymphocytes # 1.9 Monocytes # 0.8 Eosinophils # 0.3 Basophils # 0.0 Nucleated Red Blood Cells # 0.0 Sodium Level 141 Potassium Level 3.2 L Chloride Level 105 Carbon Dioxide Level 24 Anion Gap 15 Blood Urea Nitrogen 7 Creatinine 0.78 Glucose Level 147 # Calcium Level 7.9 L Total Bilirubin 2.1 H Direct Bilirubin 0.00 Indirect Bilirubin 2.1 H Aspartate Amino Transf (AST/SGOT) 36 Alanine Aminotransferase (ALT/SGPT) 29 Alkaline Phosphatase 89 Ammonia 26 Total Protein 6.0 L Albumin 2.6 L Globulin 3.40 H Albumin/Globulin Ratio 0.76 Medications Medications Current Medications Octreotide Acetate 1 mg/ Sodium Chloride 100 ml @ 5 mls/hr Q20H IV Last administered on 09/06/16 08:29; Admin Dose 5 MLS/HR; Start 09/02/16 at 18:30 Pantoprazole/ Sodium Chloride (Protonix Iv/NS) 100 ml @ 10 mls/hr Q10H IV Last administered on 09/06/16 03:00; Admin Dose 10 MLS/HR; Start 09/02/16 at 18 :30 Metoclopramide HCl (Reglan) 10 mg Q6 IV Last administered on 09/06/16 11:58; Admin Dose 10 MG; Start 09/03/16 at 00:00 IV Flush (NS 10 ml) 10 ml PRN PRN IV IV PROTOCOL; Start 09/03/16 at 10:30 Alprazolam (Xanax) 0.5 mg Q24H PRN PO ANXIETY; Start 09/03/16 at 10:30 Tamsulosin HCl (Flomax) 0.4 mg DAILY PO Last administered on 09/06/16 08:28; Admin Dose 0.4 MG; Start 09/04/16 at 09:00 Chlordiazepoxide 25 mg 25 mg Q4H PRN PO AGITATION/ANXIETY; Start 09/04/16 at 14 :30 Multivitamins/ Thiamine HCl/ Folic Acid/Sodium Chloride (Mvi-12 Adult/ Vitamin B1/Folic Acid/NS) 1,011.2 ml @ 60 mls/hr Q24H IVPB Last administered on 20:37; Admin Dose 60 MLS/HR; Start 09/04/16 at 20:00 Lorazepam (Ativan) 1 mg Q6H PRN IV AGITATION Last administered on 09/06/16 02: 53; Admin Dose 1 MG; Start 09/05/16 at 00:00 Rifaximin (Xifaxan) 550 mg BID PO Last administered on 09/06/16 11:58; Admin Dose 550 MG; Start 09/06/16 at 11:30 LINDA GUEVARA MD Sep 06, 2016 15:20
[2016-09-06] MEDS: MULTIVITAMINS 10 ML, THIAMINE 100 MG, FOLIC ACID 1 MG in SOD CHLORIDE 0.9% 1,000 ML IVPB SCH (20:43)
[2016-09-07] VITALS (11 sets, daily range): BP systolic 114–162; BP diastolic 55–70; PULSE 83–100; RESP 16–19
[2016-09-07] MEDS: METOCLOPRAMIDE 10 MG INJ IV SCH ×4 (00:16→18:41)
[2016-09-07] MEDS: LORAZEPAM 2 MG INJ IV PRN (00:16)
[2016-09-07] MEDS: PANTOPRAZOLE IV 80 MG in SOD CHLORIDE 0.9% 100 ML IV SCH ×2 (08:30→18:30)
[2016-09-07] MEDS: RIFAXIMIN 550 MG TAB PO SCH ×2 (09:00→20:07)
[2016-09-07] MEDS: TAMSULOSIN (SR) 0.4 MG CAP PO SCH (09:00)
[2016-09-07 09:42] LABS: ADD SCAN DIFF NO
[2016-09-07 09:44] LABS: BASOPHILS % 0.5 % (0.0-2.0); EOSINOPHILS # 0.4 10^3/ul (0.0-0.5); EOSINOPHILS % 5.9 % (0.0-7.0); HEMATOCRIT 26.3 % (42.0-52.0); HEMOGLOBIN 8.5 g/dl (14.0-18.0); LYMPHOCYTES # 2.3 10^3/ul (0.8-2.9); LYMPHOCYTES % 36.2 % (15.0-51.0); MEAN CORPUSCULAR HEMOGLOBIN 28.4 pg (29.0-33.0); MEAN CORPUSCULAR HGB CONC 32.3 g/dl (32.0-37.0); MEAN PLATELET VOLUME 12.1 fl (7.4-10.4); MONOCYTE # 0.7 10^3/ul (0.3-0.9); MONOCYTES % 11.3 % (0.0-11.0); NEUTROPHILS % 45.8 % (39.0-77.0); PLATELET COUNT 110 10^3/UL (140-415); RED BLOOD COUNT 2.99 10^6/ul (4.70-6.10); WHITE BLOOD COUNT 6.5 10^3/ul (4.8-10.8)
[2016-09-07 09:50] LABS: ALBUMIN 2.3 g/dl (3.3-4.9); POTASSIUM 3.4 mmol/L (3.5-5.1)
[2016-09-07 09:52] LABS: BILIRUBIN,INDIRECT 0.8 mg/dl (0-1.1); BILIRUBIN,TOTAL 0.8 mg/dl (0.2-1.3); CREATININE 0.79 mg/dl (0.61-1.24)
[2016-09-07 09:53] LABS: ALBUMIN/GLOBULIN RATIO 0.65; CALCIUM 7.5 mg/dl (8.4-10.2); TOTAL PROTEIN 5.8 g/dl (6.1-8.1)
[2016-09-07] MEDS ORDERED: LACTULOSE 30ML CUP PO SCH (10:30)
--- NOTE | 2016-09-07 12:05 | CONS ---
Date/Time of Note Date/Time of Note DATE: 09/07/16 TIME: 12:01 Assessment/Plan Assessment/Plan Additional Assessment/Plan Acute anemia Evaluate GI bleed versus chronic iron deficiency vs other etiology Monitor H&H every 8 hours, transfuse 2 units for hemoglobin less than 7.5 Monitor labs Continue PPI and Octreotide drips EGD: 1. Large fundal gastric varices with stigmata of recent bleeding. 2. Small , clinically insignificant, esophageal varices. 3. No other potential bleeding source identified in the upper gastrointestinal tract. Liver cirrhosis TIPS should be considered; unfortunately is not available at [facility] at the present time. The patient should be referred to a tertiary center for prophylactic TIPS as he has had at least 1 episode of major gastrointestinal bleeding and the prognosis is extremely poor for additional episodes of gastric variceal bleeding which carry an extremely high mortality. Case management consult ordered History of COPD Management per Primary History of alcoholism Receiving banana bag Encourage abstinence Hepatic encephalopathy Monitor ammonia level Further recommendations depend on clinical course Patient seen in collaboration with Dr. Russo Consultation Date/Type/Reason Admit Date/Time Sep 02, 2016 at 18:10 Type of Consultation: Gastroenterology 24 HR Interval Summary Free Text/Dictation Tolerating diet Ammonia level elevated Hemoglobin stable Exam/Review of Systems Vital Signs Vitals Vital Signs Date Time Temp Pulse Resp B/P Pulse Ox O2 Delivery O2 Flow Rate FiO2 09/07/16 11:25 97.8 87 18 114/55 94 09/06/16 20:00 Room Air 09/03/16 18:00 2.0 Intake and Output 09/06/16 09/06/16 09/07/16 15:00 23:00 07:00 Intake Total 1480 ml 1400 ml Output Total 1200 ml 800 ml Balance 280 ml 600 ml Exam Constitutional: Awake, NAD Psych: nl mood/affect Head: normocephalic Eyes: EOMI, nl conjunctiva, nl lids ENMT: nl external ears & nose, nl lips & teeth, nl nasal mucosa & septum Respiratory: clear to auscultation, normal air movement Cardiovascular: regular rate and rhythm Gastrointestinal: soft, non tender Musculoskeletal: nl extremities to inspection Neurological: OPERATIONS MANAGEMENT TRAINEE II-XII intact Results Result Diagram: 09/07/16 0612 09/07/16 0612 Results 24 hrs Laboratory Tests Test 09/07/16 06:12 White Blood Count 6.5 Red Blood Count 2.99 L Hemoglobin 8.5 L Hematocrit 26.3 L Mean Corpuscular Volume 88.0 Mean Corpuscular Hemoglobin 28.4 L Mean Corpuscular Hemoglobin Concent 32.3 Red Cell Distribution Width 18.0 H Platelet Count 110 L Mean Platelet Volume 12.1 H Neutrophils % 45.8 Lymphocytes % 36.2 Monocytes % 11.3 H Eosinophils % 5.9 Basophils % 0.5 Nucleated Red Blood Cells % 0.0 Neutrophils # 3.0 Lymphocytes # 2.3 Monocytes # 0.7 Eosinophils # 0.4 Basophils # 0.0 Nucleated Red Blood Cells # 0.0 Sodium Level 137 Potassium Level 3.4 L Chloride Level 105 Carbon Dioxide Level 26 Anion Gap 9 # Blood Urea Nitrogen 7 Creatinine 0.79 Glucose Level 93 # Calcium Level 7.5 L Total Bilirubin 0.8 Direct Bilirubin 0.00 Indirect Bilirubin 0.8 Aspartate Amino Transf (AST/SGOT) 42 Alanine Aminotransferase (ALT/SGPT) 31 Alkaline Phosphatase 80 Ammonia 63 #H Total Protein 5.8 L Albumin 2.3 L Globulin 3.50 H Albumin/Globulin Ratio 0.65 Medications Medications Current Medications Octreotide Acetate 1 mg/ Sodium Chloride 100 ml @ 5 mls/hr Q20H IV Last administered on 09/06/16 08:29; Admin Dose 5 MLS/HR; Start 09/02/16 at 18:30 Pantoprazole/ Sodium Chloride (Protonix Iv/NS) 100 ml @ 10 mls/hr Q10H IV Last administered on 09/06/16 22:30; Admin Dose 10 MLS/HR; Start 09/02/16 at 18 :30 Metoclopramide HCl (Reglan) 10 mg Q6 IV Last administered on 09/07/16 06:00; Admin Dose 10 MG; Start 09/03/16 at 00:00 IV Flush (NS 10 ml) 10 ml PRN PRN IV IV PROTOCOL; Start 09/03/16 at 10:30 Alprazolam (Xanax) 0.5 mg Q24H PRN PO ANXIETY; Start 09/03/16 at 10:30 Tamsulosin HCl (Flomax) 0.4 mg DAILY PO Last administered on 09/07/16 09:00; Admin Dose 0.4 MG; Start 09/04/16 at 09:00 Chlordiazepoxide 25 mg 25 mg Q4H PRN PO AGITATION/ANXIETY; Start 09/04/16 at 14 :30 Multivitamins/ Thiamine HCl/ Folic Acid/Sodium Chloride (Mvi-12 Adult/ Vitamin B1/Folic Acid/NS) 1,011.2 ml @ 60 mls/hr Q24H IVPB Last administered on 20:43; Admin Dose 60 MLS/HR; Start 09/04/16 at 20:00 Lorazepam (Ativan) 1 mg Q6H PRN IV AGITATION Last administered on 09/07/16 00: 16; Admin Dose 1 MG; Start 09/05/16 at 00:00 Rifaximin (Xifaxan) 550 mg BID PO Last administered on 09/07/16 09:00; Admin Dose 550 MG; Start 09/06/16 at 11:30 Lactulose (Enulose) 20 gm Q8 PO Last administered on 09/07/16 11:04; Admin Dose 20 GM; Start 09/07/16 at 10:30 DAVE AYALA Sep 07, 2016 12:05
[2016-09-07] MEDS ORDERED: POTASSIUM CHLORIDE (SR) 20 MEQ TAB PO STA (12:25)
--- NOTE | 2016-09-07 12:42 | PN ---
Date/Time of Note Date/Time of Note DATE: 09/07/16 TIME: 12:26 Assessment/Plan VTE Prophylaxis VTE Prophylaxis Intervention: SCD's Lines/Catheters IV Catheter Type (from Nrs): PICC Line Central line still needed: Yes Urinary Cath still in place: Yes Reason Cath still needed: other (indicate) Assessment/Plan Chief Complaint/Hosp Course Assessment and plan 1. acute gastrointestinal bleed, likely secondary to esophageal varices in a patient with an extensive tobacco and alcohol consumption history with probable cirrhosis with portal hypertension Data Warehousing Architect has been consulted Status post upper EGD, continue Protonix 2. Acute anemia Likely secondary to #1, status post transfusion of packed red blood cell, follow hemoglobin hematocrit daily, transfuse as protocol 3. Alcohol dependency Alcohol cessation has been advised, continue on Ativan as needed 4. Acute encephalopathy likely secondary to hepatic encephalopathy, continue lactulose, follow-up ammonia level, improving 5. Essential hypertension. Continue to monitor 6. COPD Stable 7. Hypoalbuminemia Stable, continue to monitor We will continue monitor patient closely for recommendation management treatment as clinical course Problems: Subjective 24 Hr Interval Summary Free Text/Dictation Patient is more awake and alert Tolerating p.o. intake Denies of any chest pain or shortness of breath Exam/Review of Systems Vital Signs Vitals Vital Signs Date Time Temp Pulse Resp B/P Pulse Ox O2 Delivery O2 Flow Rate FiO2 09/07/16 12:25 86 09/07/16 11:25 97.8 18 114/55 94 09/06/16 20:00 Room Air 09/03/16 18:00 2.0 Intake and Output 09/06/16 09/06/16 09/07/16 15:00 23:00 07:00 Intake Total 1480 ml 1400 ml Output Total 1200 ml 800 ml Balance 280 ml 600 ml Exam General: The patient is not in acute distress. HEENT: Atraumatic, normocephalic. The pupils are equal and round . Neck: Supple with full range of motion. Chest: Normal expansion of the thorax during inspiration Lungs: Clear to auscultation bilaterally Heart: Normal S1-S2, Regular rhythm and rate. Abdomen: Soft , nontender, nondistended , bowel sounds are present. Extremities: Normal to inspection, no edema no cyanosis Neurologic: Improvement in mental status,The patient is awake, alert Results Result Diagram: 3/25/17 0612 3/25/17 0612 Results 24 hrs Laboratory Tests Test 09/07/16 06:12 White Blood Count 6.5 Red Blood Count 2.99 L Hemoglobin 8.5 L Hematocrit 26.3 L Mean Corpuscular Volume 88.0 Mean Corpuscular Hemoglobin 28.4 L Mean Corpuscular Hemoglobin Concent 32.3 Red Cell Distribution Width 18.0 H Platelet Count 110 L Mean Platelet Volume 12.1 H Neutrophils % 45.8 Lymphocytes % 36.2 Monocytes % 11.3 H Eosinophils % 5.9 Basophils % 0.5 Nucleated Red Blood Cells % 0.0 Neutrophils # 3.0 Lymphocytes # 2.3 Monocytes # 0.7 Eosinophils # 0.4 Basophils # 0.0 Nucleated Red Blood Cells # 0.0 Sodium Level 137 Potassium Level 3.4 L Chloride Level 105 Carbon Dioxide Level 26 Anion Gap 9 # Blood Urea Nitrogen 7 Creatinine 0.79 Glucose Level 93 # Calcium Level 7.5 L Total Bilirubin 0.8 Direct Bilirubin 0.00 Indirect Bilirubin 0.8 Aspartate Amino Transf (AST/SGOT) 42 Alanine Aminotransferase (ALT/SGPT) 31 Alkaline Phosphatase 80 Ammonia 63 #H Total Protein 5.8 L Albumin 2.3 L Globulin 3.50 H Albumin/Globulin Ratio 0.65 Medications Medications Current Medications Octreotide Acetate 1 mg/ Sodium Chloride 100 ml @ 5 mls/hr Q20H IV Last administered on 09/06/16 08:29; Admin Dose 5 MLS/HR; Start 09/02/16 at 18:30 Pantoprazole/ Sodium Chloride (Protonix Iv/NS) 100 ml @ 10 mls/hr Q10H IV Last administered on 09/06/16 22:30; Admin Dose 10 MLS/HR; Start 09/02/16 at 18 :30 Metoclopramide HCl (Reglan) 10 mg Q6 IV Last administered on 09/07/16 06:00; Admin Dose 10 MG; Start 09/03/16 at 00:00 IV Flush (NS 10 ml) 10 ml PRN PRN IV IV PROTOCOL; Start 09/03/16 at 10:30 Alprazolam (Xanax) 0.5 mg Q24H PRN PO ANXIETY; Start 09/03/16 at 10:30 Tamsulosin HCl (Flomax) 0.4 mg DAILY PO Last administered on 09/07/16 09:00; Admin Dose 0.4 MG; Start 09/04/16 at 09:00 Chlordiazepoxide 25 mg 25 mg Q4H PRN PO AGITATION/ANXIETY; Start 09/04/16 at 14 :30 Multivitamins/ Thiamine HCl/ Folic Acid/Sodium Chloride (Mvi-12 Adult/ Vitamin B1/Folic Acid/NS) 1,011.2 ml @ 60 mls/hr Q24H IVPB Last administered on 20:43; Admin Dose 60 MLS/HR; Start 09/04/16 at 20:00 Lorazepam (Ativan) 1 mg Q6H PRN IV AGITATION Last administered on 09/07/16 00: 16; Admin Dose 1 MG; Start 09/05/16 at 00:00 Rifaximin (Xifaxan) 550 mg BID PO Last administered on 09/07/16 09:00; Admin Dose 550 MG; Start 09/06/16 at 11:30 Lactulose (Enulose) 20 gm TID PO ; Start 09/07/16 at 13:00; Status LINDA GILES MD Sep 07, 2016 12:42
[2016-09-07] MEDS: LACTULOSE 30ML CUP PO SCH ×2 (13:49→20:07)
[2016-09-07] MEDS: OCTREOTIDE 1 MG in SOD CHLORIDE 0.9% 95 ML IV SCH (18:30)
[2016-09-07] MEDS: ALPRAZOLAM 0.5 MG TAB PO PRN (20:12)
[2016-09-07] MEDS: MULTIVITAMINS 10 ML, THIAMINE 100 MG, FOLIC ACID 1 MG in SOD CHLORIDE 0.9% 1,000 ML IVPB SCH (20:53)
[2016-09-08] VITALS (11 sets, daily range): BP systolic 112–150; BP diastolic 53–77; PULSE 75–90; RESP 16–20
[2016-09-08] MEDS ORDERED: ACETAMINOPHEN 325 MG TAB PO PRN (02:00)
[2016-09-08] MEDS: PANTOPRAZOLE IV 80 MG in SOD CHLORIDE 0.9% 100 ML IV SCH ×2 (04:30→15:20)
[2016-09-08] MEDS: METOCLOPRAMIDE 10 MG INJ IV SCH ×4 (06:05→17:59)
[2016-09-08 06:31] LABS: IRON 20 ug/dl (35-150)
[2016-09-08 06:41] LABS: TOTAL IRON BINDING CAPACITY 348 ug/dl (241-421)
[2016-09-08 07:09] LABS: FERRITIN 18.7 ng/ml (11.1-264.0)
[2016-09-08 07:38] LABS: ADD SCAN DIFF NO
[2016-09-08 07:39] LABS: FOLATE 15.6 ng/ml (2.8-20.0)
[2016-09-08 07:41] LABS: BASOPHILS % 0.4 % (0.0-2.0); EOSINOPHILS # 0.3 10^3/ul (0.0-0.5); EOSINOPHILS % 3.8 % (0.0-7.0); HEMATOCRIT 26.1 % (42.0-52.0); HEMOGLOBIN 8.1 g/dl (14.0-18.0); LYMPHOCYTES # 2.2 10^3/ul (0.8-2.9); LYMPHOCYTES % 32.5 % (15.0-51.0); MEAN CORPUSCULAR HEMOGLOBIN 27.8 pg (29.0-33.0); MEAN CORPUSCULAR VOLUME 89.7 fl (82.0-101.0); MEAN PLATELET VOLUME 12.1 fl (7.4-10.4); MONOCYTE # 0.7 10^3/ul (0.3-0.9); MONOCYTES % 9.7 % (0.0-11.0); NEUTROPHIL # 3.6 10^3/ul (1.6-7.5); NEUTROPHILS % 53.2 % (39.0-77.0); PLATELET COUNT 106 10^3/UL (140-415); RED BLOOD COUNT 2.91 10^6/ul (4.70-6.10); RED CELL DISTRIBUTION WIDTH 18.2 % (11.5-14.5); WHITE BLOOD COUNT 6.8 10^3/ul (4.8-10.8)
[2016-09-08 07:44] LABS: ALBUMIN 2.1 g/dl (3.3-4.9); POTASSIUM 3.6 mmol/L (3.5-5.1)
[2016-09-08 07:46] LABS: BILIRUBIN,INDIRECT 0.6 mg/dl (0-1.1); BILIRUBIN,TOTAL 0.6 mg/dl (0.2-1.3); CREATININE 0.7 mg/dl (0.61-1.24)
[2016-09-08 07:47] LABS: ALBUMIN/GLOBULIN RATIO 0.65; TOTAL PROTEIN 5.3 g/dl (6.1-8.1)
[2016-09-08 07:48] LABS: CALCIUM 7.4 mg/dl (8.4-10.2)
[2016-09-08] MEDS: LACTULOSE 30ML CUP PO SCH ×4 (09:00→20:45)
[2016-09-08] MEDS: RIFAXIMIN 550 MG TAB PO SCH ×2 (09:46→20:44)
[2016-09-08] MEDS: TAMSULOSIN (SR) 0.4 MG CAP PO SCH (09:46)
[2016-09-08] MEDS: ALPRAZOLAM 0.5 MG TAB PO PRN (09:51)
--- NOTE | 2016-09-08 11:42 | CONS ---
Date/Time of Note Date/Time of Note DATE: 09/08/16 TIME: 11:42 Assessment/Plan Assessment/Plan Additional Assessment/Plan Acute anemia Evaluate GI bleed versus chronic iron deficiency vs other etiology Monitor H&H every 8 hours, transfuse 2 units for hemoglobin less than 7.5 Monitor labs Continue PPI and Octreotide drips EGD: 1. Large fundal gastric varices with stigmata of recent bleeding. 2. Small , clinically insignificant, esophageal varices. 3. No other potential bleeding source identified in the upper gastrointestinal tract. Liver cirrhosis TIPS should be considered; unfortunately is not available at [facility] at the present time. The patient should be referred to a tertiary center for prophylactic TIPS as he has had at least 1 episode of major gastrointestinal bleeding and the prognosis is extremely poor for additional episodes of gastric variceal bleeding which carry an extremely high mortality. Case management consult ordered History of COPD Management per Primary History of alcoholism Receiving banana bag Encourage abstinence Hepatic encephalopathy Monitor ammonia level Further recommendations depend on clinical course Patient seen in collaboration with Dr. Russo Consultation Date/Type/Reason Admit Date/Time Sep 02, 2016 at 18:10 Type of Consultation: Gastroenterology 24 HR Interval Summary Free Text/Dictation Hgb stable roman diet Exam/Review of Systems Vital Signs Vitals Vital Signs Date Time Temp Pulse Resp B/P Pulse Ox O2 Delivery O2 Flow Rate FiO2 09/08/16 08:10 98.1 77 18 130/77 98 09/06/16 20:00 Room Air Intake and Output 09/07/16 09/07/16 09/08/16 15:00 23:00 07:00 Intake Total 351.2 ml 495 ml 1120 ml Output Total 600 ml 700 ml Balance 351.2 ml -105 ml 420 ml Exam Constitutional: Awake, NAD Psych: nl mood/affect Head: normocephalic Eyes: EOMI, nl conjunctiva, nl lids ENMT: nl external ears & nose, nl lips & teeth, nl nasal mucosa & septum Respiratory: clear to auscultation, normal air movement Cardiovascular: regular rate and rhythm Gastrointestinal: soft, non tender Musculoskeletal: nl extremities to inspection Neurological: CLAY ARTIST II-XII intact Results Result Diagram: 09/08/16 0540 09/08/16 0540 Results 24 hrs Laboratory Tests Test 09/08/16 05:40 White Blood Count 6.8 Red Blood Count 2.91 L Hemoglobin 8.1 L Hematocrit 26.1 L Mean Corpuscular Volume 89.7 Mean Corpuscular Hemoglobin 27.8 L Mean Corpuscular Hemoglobin Concent 31.0 L Red Cell Distribution Width 18.2 H Platelet Count 106 L Mean Platelet Volume 12.1 H Neutrophils % 53.2 Lymphocytes % 32.5 Monocytes % 9.7 Eosinophils % 3.8 Basophils % 0.4 Nucleated Red Blood Cells % 0.0 Neutrophils # 3.6 Lymphocytes # 2.2 Monocytes # 0.7 Eosinophils # 0.3 Basophils # 0.0 Nucleated Red Blood Cells # 0.0 Sodium Level 137 Potassium Level 3.6 Chloride Level 109 Carbon Dioxide Level 23 Anion Gap 9 Blood Urea Nitrogen 7 Creatinine 0.70 Glucose Level 103 Calcium Level 7.4 L Iron Level 20 L Total Iron Binding Capacity 348 Percent Iron Saturation 6 L Ferritin 18.7 Total Bilirubin 0.6 Direct Bilirubin 0.00 Indirect Bilirubin 0.6 Aspartate Amino Transf (AST/SGOT) 31 Alanine Aminotransferase (ALT/SGPT) 30 Alkaline Phosphatase 71 Ammonia 32 #H Total Protein 5.3 L Albumin 2.1 L Globulin 3.20 Albumin/Globulin Ratio 0.65 Vitamin B12 Level 877 Folate 15.6 Medications Medications Current Medications Octreotide Acetate 1 mg/ Sodium Chloride 100 ml @ 5 mls/hr Q20H IV Last administered on 09/06/16 08:29; Admin Dose 5 MLS/HR; Start 09/02/16 at 18:30 Pantoprazole/ Sodium Chloride (Protonix Iv/NS) 100 ml @ 10 mls/hr Q10H IV Last administered on 09/08/16 04:30; Admin Dose 10 MLS/HR; Start 09/02/16 at 18 :30 Metoclopramide HCl (Reglan) 10 mg Q6 IV Last administered on 09/08/16 06:05; Admin Dose 10 MG; Start 09/03/16 at 00:00 IV Flush (NS 10 ml) 10 ml PRN PRN IV IV PROTOCOL; Start 09/03/16 at 10:30 Alprazolam (Xanax) 0.5 mg Q24H PRN PO ANXIETY Last administered on 09/08/16 09 :51; Admin Dose 0.5 MG; Start 09/03/16 at 10:30 Tamsulosin HCl (Flomax) 0.4 mg DAILY PO Last administered on 09/08/16 09:46; Admin Dose 0.4 MG; Start 09/04/16 at 09:00 Chlordiazepoxide 25 mg 25 mg Q4H PRN PO AGITATION/ANXIETY; Start 09/04/16 at 14 :30 Multivitamins/ Thiamine HCl/ Folic Acid/Sodium Chloride (Mvi-12 Adult/ Vitamin B1/Folic Acid/NS) 1,011.2 ml @ 60 mls/hr Q24H IVPB Last administered on 20:53; Admin Dose 60 MLS/HR; Start 09/04/16 at 20:00 Lorazepam (Ativan) 1 mg Q6H PRN IV AGITATION Last administered on 09/07/16 00: 16; Admin Dose 1 MG; Start 09/05/16 at 00:00 Rifaximin (Xifaxan) 550 mg BID PO Last administered on 09/08/16 09:46; Admin Dose 550 MG; Start 09/06/16 at 11:30 Lactulose (Enulose) 20 gm TID PO Last administered on 09/07/16 20:07; Admin Dose 20 GM; Start 09/07/16 at 13:00 Acetaminophen (Tylenol Tab) 650 mg Q6H PRN PO PAIN AND OR ELEVATED TEMP Last administered on 09/08/16 01:59; Admin Dose 650 MG; Start 09/08/16 at 02:00 DAVE AYALA Sep 08, 2016 11:42
[2016-09-08] MEDS: LACTULOSE ENEMA 1,000 ML BTL PR SCH ×2 (14:00→22:00)
--- NOTE | 2016-09-08 14:45 | PN ---
Date/Time of Note Date/Time of Note DATE: 09/08/16 TIME: 14:44 Assessment/Plan VTE Prophylaxis VTE Prophylaxis Intervention: SCD's Lines/Catheters IV Catheter Type (from Nrs): PICC Line Central line still needed: Yes Urinary Cath still in place: Yes Reason Cath still needed: other (indicate) Assessment/Plan Chief Complaint/Hosp Course Assessment and plan 1. acute gastrointestinal bleed, likely secondary to esophageal varices in a patient with an extensive tobacco and alcohol consumption history with probable cirrhosis with portal hypertension [facility] has been consulted Status post upper EGD, continue Protonix 2. Acute anemia Likely secondary to #1, status post transfusion of packed red blood cell, follow hemoglobin hematocrit daily, transfuse as protocol 3. Alcohol dependency Alcohol cessation has been advised, continue on Ativan as needed 4. Acute encephalopathy likely secondary to hepatic encephalopathy, continue lactulose, follow-up ammonia level, no acute changes from yesterday 5. Essential hypertension. Continue to monitor 6. COPD Stable 7. Hypoalbuminemia Stable, continue to monitor We will continue monitor patient closely for recommendation management treatment as clinical course Problems: Subjective 24 Hr Interval Summary Free Text/Dictation Patient is found to be more groggy today No nausea vomiting diarrhea Was placed on soft restraints secondary to was attempting to pull his IV line Tolerating oral intake Exam/Review of Systems Vital Signs Vitals Vital Signs Date Time Temp Pulse Resp B/P Pulse Ox O2 Delivery O2 Flow Rate FiO2 09/08/16 12:00 87 09/08/16 08:10 98.1 18 130/77 98 09/06/16 20:00 Room Air Intake and Output 09/07/16 09/07/16 09/08/16 15:00 23:00 07:00 Intake Total 351.2 ml 495 ml 1120 ml Output Total 600 ml 700 ml Balance 351.2 ml -105 ml 420 ml Exam General: The patient is awake easily arousable although groggy HEENT: Atraumatic, normocephalic. The pupils are equal and round . Neck: Supple with full range of motion. Chest: Normal expansion of the thorax during inspiration Lungs: Clear to auscultation bilaterally Heart: Normal S1-S2, Regular rhythm and rate. Abdomen: Soft , nontender, nondistended , bowel sounds are present. Extremities: Normal to inspection, no edema no cyanosis Neurologic: Awake although encephalopathy Results Result Diagram: 09/08/16 0540 09/08/1640 Results 24 hrs Laboratory Tests Test 09/08/16 05:40 White Blood Count 6.8 Red Blood Count 2.91 L Hemoglobin 8.1 L Hematocrit 26.1 L Mean Corpuscular Volume 89.7 Mean Corpuscular Hemoglobin 27.8 L Mean Corpuscular Hemoglobin Concent 31.0 L Red Cell Distribution Width 18.2 H Platelet Count 106 L Mean Platelet Volume 12.1 H Neutrophils % 53.2 Lymphocytes % 32.5 Monocytes % 9.7 Eosinophils % 3.8 Basophils % 0.4 Nucleated Red Blood Cells % 0.0 Neutrophils # 3.6 Lymphocytes # 2.2 Monocytes # 0.7 Eosinophils # 0.3 Basophils # 0.0 Nucleated Red Blood Cells # 0.0 Sodium Level 137 Potassium Level 3.6 Chloride Level 109 Carbon Dioxide Level 23 Anion Gap 9 Blood Urea Nitrogen 7 Creatinine 0.70 Glucose Level 103 Calcium Level 7.4 L Iron Level 20 L Total Iron Binding Capacity 348 Percent Iron Saturation 6 L Ferritin 18.7 Total Bilirubin 0.6 Direct Bilirubin 0.00 Indirect Bilirubin 0.6 Aspartate Amino Transf (AST/SGOT) 31 Alanine Aminotransferase (ALT/SGPT) 30 Alkaline Phosphatase 71 Ammonia 32 #H Total Protein 5.3 L Albumin 2.1 L Globulin 3.20 Albumin/Globulin Ratio 0.65 Vitamin B12 Level 877 Folate 15.6 Medications Medications Current Medications Octreotide Acetate 1 mg/ Sodium Chloride 100 ml @ 5 mls/hr Q20H IV Last administered on 09/06/16 08:29; Admin Dose 5 MLS/HR; Start 09/02/16 at 18:30 Pantoprazole/ Sodium Chloride (Protonix Iv/NS) 100 ml @ 10 mls/hr Q10H IV Last administered on 09/08/16 04:30; Admin Dose 10 MLS/HR; Start 09/02/16 at 18 :30 Metoclopramide HCl (Reglan) 10 mg Q6 IV Last administered on 09/08/16 06:05; Admin Dose 10 MG; Start 09/03/16 at 00:00 IV Flush (NS 10 ml) 10 ml PRN PRN IV IV PROTOCOL; Start 09/03/16 at 10:30 Alprazolam (Xanax) 0.5 mg Q24H PRN PO ANXIETY Last administered on 09/08/16 09 :51; Admin Dose 0.5 MG; Start 09/03/16 at 10:30 Tamsulosin HCl (Flomax) 0.4 mg DAILY PO Last administered on 09/08/16 09:46; Admin Dose 0.4 MG; Start 09/04/16 at 09:00 Chlordiazepoxide 25 mg 25 mg Q4H PRN PO AGITATION/ANXIETY; Start 09/04/16 at 14 :30 Multivitamins/ Thiamine HCl/ Folic Acid/Sodium Chloride (Mvi-12 Adult/ Vitamin B1/Folic Acid/NS) 1,011.2 ml @ 60 mls/hr Q24H IVPB Last administered on 20:53; Admin Dose 60 MLS/HR; Start 09/04/16 at 20:00 Lorazepam (Ativan) 1 mg Q6H PRN IV AGITATION Last administered on 09/07/16 00: 16; Admin Dose 1 MG; Start 09/05/16 at 00:00 Rifaximin (Xifaxan) 550 mg BID PO Last administered on 09/08/16 09:46; Admin Dose 550 MG; Start 09/06/16 at 11:30 Lactulose (Enulose) 20 gm TID PO Last administered on 09/07/16 20:07; Admin Dose 20 GM; Start 09/07/16 at 13:00 Acetaminophen (Tylenol Tab) 650 mg Q6H PRN PO PAIN AND OR ELEVATED TEMP Last administered on 09/08/16 01:59; Admin Dose 650 MG; Start 09/08/16 at 02:00 Lactulose (Lactulose Enema) 100 ml Q8 [place] ; Start 09/08/16 at 14:00 Ferrous Sulfate (Feosol Liquid Cup) 300 mg DAILY PO ; Start 09/09/16 at 09:00; Status LINDA GILES MD Sep 08, 2016 14:45
[2016-09-08] MEDS: LORAZEPAM 2 MG INJ IV PRN ×2 (15:12→22:31)
[2016-09-08] MEDS: OCTREOTIDE 1 MG in SOD CHLORIDE 0.9% 95 ML IV SCH (17:59)
[2016-09-08] MEDS: MULTIVITAMINS 10 ML, THIAMINE 100 MG, FOLIC ACID 1 MG in SOD CHLORIDE 0.9% 1,000 ML IVPB SCH (20:34)
[2016-09-09] VITALS (13 sets, daily range): BP systolic 119–164; BP diastolic 59–77; PULSE 82–93; RESP 19–20
[2016-09-09] MEDS: METOCLOPRAMIDE 10 MG INJ IV SCH ×5 (00:36→23:39)
[2016-09-09] MEDS: PANTOPRAZOLE IV 80 MG in SOD CHLORIDE 0.9% 100 ML IV SCH ×3 (00:37→21:56)
[2016-09-09] MEDS: LACTULOSE ENEMA 1,000 ML BTL PR SCH ×3 (05:17→21:37)
[2016-09-09 07:30] LABS: ADD SCAN DIFF NO
[2016-09-09 07:41] LABS: BASOPHILS % 0.3 % (0.0-2.0); EOSINOPHILS # 0.3 10^3/ul (0.0-0.5); EOSINOPHILS % 4.1 % (0.0-7.0); HEMATOCRIT 27.5 % (42.0-52.0); HEMOGLOBIN 8.4 g/dl (14.0-18.0); LYMPHOCYTES % 32.5 % (15.0-51.0); MEAN CORPUSCULAR HEMOGLOBIN 27.5 pg (29.0-33.0); MEAN CORPUSCULAR HGB CONC 30.5 g/dl (32.0-37.0); MEAN CORPUSCULAR VOLUME 89.9 fl (82.0-101.0); MEAN PLATELET VOLUME 12.6 fl (7.4-10.4); MONOCYTE # 0.6 10^3/ul (0.3-0.9); MONOCYTES % 9.6 % (0.0-11.0); NEUTROPHIL # 3.2 10^3/ul (1.6-7.5); NEUTROPHILS % 53.2 % (39.0-77.0); PLATELET COUNT 108 10^3/UL (140-415); RED BLOOD COUNT 3.06 10^6/ul (4.70-6.10); WHITE BLOOD COUNT 6.1 10^3/ul (4.8-10.8)
[2016-09-09 08:11] LABS: POTASSIUM 3.7 mmol/L (3.5-5.1)
[2016-09-09 08:13] LABS: CREATININE 0.71 mg/dl (0.61-1.24)
[2016-09-09 08:14] LABS: CALCIUM 7.8 mg/dl (8.4-10.2)
[2016-09-09] MEDS: FERROUS SULFATE 60 MG/ML 5ML CUP PO SCH (10:12)
[2016-09-09] MEDS: LACTULOSE 30ML CUP PO SCH ×3 (10:12→21:36)
[2016-09-09] MEDS: TAMSULOSIN (SR) 0.4 MG CAP PO SCH (10:13)
[2016-09-09] MEDS: RIFAXIMIN 550 MG TAB PO SCH ×2 (10:13→21:36)
[2016-09-09] MEDS: OCTREOTIDE 1 MG in SOD CHLORIDE 0.9% 95 ML IV SCH ×2 (12:47→23:39)
--- NOTE | 2016-09-09 13:13 | PN ---
Date/Time of Note Date/Time of Note DATE: 09/09/16 TIME: 13:07 Assessment/Plan VTE Prophylaxis VTE Prophylaxis Intervention: SCD's Lines/Catheters IV Catheter Type (from Nrs): PICC Line Central line still needed: Yes Urinary Cath still in place: Yes Reason Cath still needed: urinary retention Assessment/Plan Assessment/Plan Acute Anemia stable Hemoglobin 8.4 Upper GI bleed Esophageal varices grade 1/4 with no stigmata of bleeding Cirrhosis of liver EGD 09/03/16 Large fundal gastric varices with stigmata of recent bleeding.likely source of bleeding . Small, clinically insignificant, esophageal varices. No other potential bleeding source identified in the upper gastrointestinal trac HX of COPD HX of Alcoholism Plan Referral to tertiary hospital for TIPS Advance diet as tolerated Monitor H and H q 6 Subjective 24 Hr Interval Summary Free Text/Dictation Course reviewed with nursing staff Patient is alert but forgetful no episode of melena present hemoglobin 8.4 no hematemesis nor hematochezia EGD 09/03/16 Large fundal gastric varices with stigmata of recent bleeding. . Small, clinically insignificant, esophageal varices. No other potential bleeding source identified in the upper gastrointestinal tract. Exam/Review of Systems Vital Signs Vitals Vital Signs Date Time Temp Pulse Resp B/P Pulse Ox O2 Delivery O2 Flow Rate FiO2 09/09/16 12:43 91 09/09/16 11:44 98.4 20 128/60 96 09/06/16 20:00 Room Air Intake and Output 09/08/16 09/08/16 09/09/16 15:00 23:00 07:00 Intake Total 1630 ml 1360 ml Output Total 800 ml 550 ml Balance 830 ml 810 ml Exam Constitutional: awake,alert, well developed Head: normocephalic Neck: non-tender, supple Respiratory: clear to auscultation, normal air movement Cardiovascular: nl pulses, regular rate and rhythm Gastrointestinal: bowel sounds, nl liver, spleen, non-tender, soft, surgical scars (midline scar), No ascites, No firm, No hepatomegaly, No mass, No rebound or guarding Musculoskeletal: nl extremities to inspection, nl gait and stance Extremities: normal pulses Neurological: alert Results Result Diagram: 09/09/16 0605 09/09/16 0605 Results 24 hrs Laboratory Tests Test 09/09/16 06:05 09/09/16 08:17 White Blood Count 6.1 Red Blood Count 3.06 L Hemoglobin 8.4 L Hematocrit 27.5 L Mean Corpuscular Volume 89.9 Mean Corpuscular Hemoglobin 27.5 L Mean Corpuscular Hemoglobin Concent 30.5 L Red Cell Distribution Width 18.0 H Platelet Count 108 L Mean Platelet Volume 12.6 H Neutrophils % 53.2 Lymphocytes % 32.5 Monocytes % 9.6 Eosinophils % 4.1 Basophils % 0.3 Nucleated Red Blood Cells % 0.0 Neutrophils # 3.2 Lymphocytes # 2.0 Monocytes # 0.6 Eosinophils # 0.3 Basophils # 0.0 Nucleated Red Blood Cells # 0.0 Sodium Level 138 Potassium Level 3.7 Chloride Level 107 Carbon Dioxide Level 27 Anion Gap 8 Blood Urea Nitrogen 5 L Creatinine 0.71 Glucose Level 91 Calcium Level 7.8 L Ammonia 52 #H Bedside Glucose 199 Medications Medications Current Medications Octreotide Acetate 1 mg/ Sodium Chloride 100 ml @ 5 mls/hr Q20H IV Last administered on 09/09/16 12:47; Admin Dose 5 MLS/HR; Start 09/02/16 at 18:30 Pantoprazole/ Sodium Chloride (Protonix Iv/NS) 100 ml @ 10 mls/hr Q10H IV Last administered on 09/09/16 12:47; Admin Dose 10 MLS/HR; Start 09/02/16 at 18 :30 Metoclopramide HCl (Reglan) 10 mg Q6 IV Last administered on 09/09/16 12:47; Admin Dose 10 MG; Start 09/03/16 at 00:00 IV Flush (NS 10 ml) 10 ml PRN PRN IV IV PROTOCOL; Start 09/03/16 at 10:30 Alprazolam (Xanax) 0.5 mg Q24H PRN PO ANXIETY Last administered on 09/08/16 09 :51; Admin Dose 0.5 MG; Start 09/03/16 at 10:30 Tamsulosin HCl (Flomax) 0.4 mg DAILY PO Last administered on 09/09/16 10:13; Admin Dose 0.4 MG; Start 09/04/16 at 09:00 Chlordiazepoxide 25 mg 25 mg Q4H PRN PO AGITATION/ANXIETY; Start 09/04/16 at 14 :30 Multivitamins/ Thiamine HCl/ Folic Acid/Sodium Chloride (Mvi-12 Adult/ Vitamin B1/Folic Acid/NS) 1,011.2 ml @ 60 mls/hr Q24H IVPB Last administered on 20:34; Admin Dose 60 MLS/HR; Start 09/04/16 at 20:00 Lorazepam (Ativan) 1 mg Q6H PRN IV AGITATION Last administered on 09/08/16 22: 31; Admin Dose 1 MG; Start 09/05/16 at 00:00 Rifaximin (Xifaxan) 550 mg BID PO Last administered on 09/09/16 10:13; Admin Dose 550 MG; Start 09/06/16 at 11:30 Lactulose (Enulose) 20 gm TID PO Last administered on 09/09/16 12:47; Admin Dose 20 GM; Start 09/07/16 at 13:00 Acetaminophen (Tylenol Tab) 650 mg Q6H PRN PO PAIN AND OR ELEVATED TEMP Last administered on 09/08/16 01:59; Admin Dose 650 MG; Start 09/08/16 at 02:00 Lactulose (Lactulose Enema) 100 ml Q8 [place] Last administered on 09/08/16 14:00; Admin Dose 100 ML; Start 09/08/16 at 14:00 Ferrous Sulfate (Feosol Liquid Cup) 300 mg DAILY PO Last administered on 10:12; Admin Dose 300 MG; Start 09/09/16 at 09:00 MILENA SPRINGER MD Sep 09, 2016 13:13
--- NOTE | 2016-09-09 14:35 | PN ---
Date/Time of Note Date/Time of Note DATE: 09/09/16 TIME: 14:34 Assessment/Plan VTE Prophylaxis VTE Prophylaxis Intervention: SCD's Lines/Catheters IV Catheter Type (from Nrs): PICC Line Central line still needed: Yes Urinary Cath still in place: Yes Reason Cath still needed: other (indicate) Assessment/Plan Chief Complaint/Hosp Course Assessment and plan 1. acute gastrointestinal bleed, likely secondary to esophageal varices in a patient with an extensive tobacco and alcohol consumption history with probable cirrhosis with portal hypertension [employer] has been consulted Status post upper EGD, continue Protonix 2. Acute anemia Likely secondary to #1, status post transfusion of packed red blood cell, follow hemoglobin hematocrit daily, transfuse as protocol 3. Alcohol dependency Alcohol cessation has been advised, continue on Ativan as needed 4. Acute encephalopathy likely secondary to hepatic encephalopathy, continue lactulose, follow-up ammonia level, no acute changes from yesterday 5. Essential hypertension. Continue to monitor 6. COPD Stable 7. Hypoalbuminemia Stable, continue to monitor We will continue monitor patient closely for recommendation management treatment as clinical course Problems: Subjective 24 Hr Interval Summary Free Text/Dictation Patient is more awake and alert Tolerating oral intake Able to follow command Exam/Review of Systems Vital Signs Vitals Vital Signs Date Time Temp Pulse Resp B/P Pulse Ox O2 Delivery O2 Flow Rate FiO2 09/09/16 12:43 91 09/09/16 11:44 98.4 20 128/60 96 09/06/16 20:00 Room Air Intake and Output 09/08/16 09/08/16 09/09/16 15:00 23:00 07:00 Intake Total 1630 ml 1360 ml Output Total 800 ml 550 ml Balance 830 ml 810 ml Exam General: The patient is well-developed, Not in acute distress. HEENT: Atraumatic, normocephalic. The pupils are equal and round . Neck: Supple with full range of motion. Chest: Normal expansion of the thorax during inspiration Lungs: Clear to auscultation bilaterally Heart: Normal S1-S2, Regular rhythm and rate. Abdomen: Soft , nontender, nondistended , bowel sounds are present. Extremities: Normal to inspection, no edema no cyanosis Neurologic: Improvement in mental status,The patient is awake, alert and oriented to self and place. Results Result Diagram: 09/09/1660409/09/16604 Results 24 hrs Laboratory Tests Test 09/09/16 06:05 09/09/16 08:17 White Blood Count 6.1 Red Blood Count 3.06 L Hemoglobin 8.4 L Hematocrit 27.5 L Mean Corpuscular Volume 89.9 Mean Corpuscular Hemoglobin 27.5 L Mean Corpuscular Hemoglobin Concent 30.5 L Red Cell Distribution Width 18.0 H Platelet Count 108 L Mean Platelet Volume 12.6 H Neutrophils % 53.2 Lymphocytes % 32.5 Monocytes % 9.6 Eosinophils % 4.1 Basophils % 0.3 Nucleated Red Blood Cells % 0.0 Neutrophils # 3.2 Lymphocytes # 2.0 Monocytes # 0.6 Eosinophils # 0.3 Basophils # 0.0 Nucleated Red Blood Cells # 0.0 Sodium Level 138 Potassium Level 3.7 Chloride Level 107 Carbon Dioxide Level 27 Anion Gap 8 Blood Urea Nitrogen 5 L Creatinine 0.71 Glucose Level 91 Calcium Level 7.8 L Ammonia 52 #H Bedside Glucose 199 Medications Medications Current Medications Octreotide Acetate 1 mg/ Sodium Chloride 100 ml @ 5 mls/hr Q20H IV Last administered on 09/09/16 12:47; Admin Dose 5 MLS/HR; Start 09/02/16 at 18:30 Pantoprazole/ Sodium Chloride (Protonix Iv/NS) 100 ml @ 10 mls/hr Q10H IV Last administered on 09/09/16 12:47; Admin Dose 10 MLS/HR; Start 09/02/16 at 18 :30 Metoclopramide HCl (Reglan) 10 mg Q6 IV Last administered on 09/09/16 12:47; Admin Dose 10 MG; Start 09/03/16 at 00:00 IV Flush (NS 10 ml) 10 ml PRN PRN IV IV PROTOCOL; Start 09/03/16 at 10:30 Alprazolam (Xanax) 0.5 mg Q24H PRN PO ANXIETY Last administered on 09/08/16 09 :51; Admin Dose 0.5 MG; Start 09/03/16 at 10:30 Tamsulosin HCl (Flomax) 0.4 mg DAILY PO Last administered on 09/09/16 10:13; Admin Dose 0.4 MG; Start 09/04/16 at 09:00 Chlordiazepoxide 25 mg 25 mg Q4H PRN PO AGITATION/ANXIETY; Start 09/04/16 at 14 :30 Multivitamins/ Thiamine HCl/ Folic Acid/Sodium Chloride (Mvi-12 Adult/ Vitamin B1/Folic Acid/NS) 1,011.2 ml @ 60 mls/hr Q24H IVPB Last administered on 20:34; Admin Dose 60 MLS/HR; Start 09/04/16 at 20:00 Lorazepam (Ativan) 1 mg Q6H PRN IV AGITATION Last administered on 09/08/16 22: 31; Admin Dose 1 MG; Start 09/05/16 at 00:00 Rifaximin (Xifaxan) 550 mg BID PO Last administered on 09/09/16 10:13; Admin Dose 550 MG; Start 09/06/16 at 11:30 Lactulose (Enulose) 20 gm TID PO Last administered on 09/09/16 12:47; Admin Dose 20 GM; Start 09/07/16 at 13:00 Acetaminophen (Tylenol Tab) 650 mg Q6H PRN PO PAIN AND OR ELEVATED TEMP Last administered on 09/08/16 01:59; Admin Dose 650 MG; Start 09/08/16 at 02:00 Lactulose (Lactulose Enema) 100 ml Q8 [place] Last administered on 09/08/16 14:00; Admin Dose 100 ML; Start 09/08/16 at 14:00 Ferrous Sulfate (Feosol Liquid Cup) 300 mg DAILY PO Last administered on 10:12; Admin Dose 300 MG; Start 09/09/16 at 09:00 LINDA GUEVARA MD Sep 09, 2016 14:35
[2016-09-09] MEDS: ALPRAZOLAM 0.5 MG TAB PO PRN (21:36)
[2016-09-09] MEDS: LORAZEPAM 2 MG INJ IV PRN (21:37)
[2016-09-09] MEDS: MULTIVITAMINS 10 ML, THIAMINE 100 MG, FOLIC ACID 1 MG in SOD CHLORIDE 0.9% 1,000 ML IVPB SCH (21:56)
[2016-09-10] VITALS (11 sets, daily range): BP systolic 120–148; BP diastolic 56–71; PULSE 82–95; RESP 18–20
[2016-09-10] MEDS: LACTULOSE ENEMA 1,000 ML BTL PR SCH ×3 (06:00→19:34)
[2016-09-10] MEDS: PANTOPRAZOLE IV 80 MG in SOD CHLORIDE 0.9% 100 ML IV SCH ×2 (06:14→15:50)
[2016-09-10] MEDS: METOCLOPRAMIDE 10 MG INJ IV SCH ×3 (06:14→17:40)
[2016-09-10 07:40] LABS: ADD SCAN DIFF NO
[2016-09-10 07:49] LABS: BASOPHILS % 0.4 % (0.0-2.0); EOSINOPHILS # 0.2 10^3/ul (0.0-0.5); EOSINOPHILS % 3.6 % (0.0-7.0); HEMATOCRIT 25.2 % (42.0-52.0); HEMOGLOBIN 7.8 g/dl (14.0-18.0); LYMPHOCYTES % 35.6 % (15.0-51.0); MEAN CORPUSCULAR HEMOGLOBIN 27.5 pg (29.0-33.0); MEAN CORPUSCULAR VOLUME 88.7 fl (82.0-101.0); MONOCYTE # 0.5 10^3/ul (0.3-0.9); MONOCYTES % 9.1 % (0.0-11.0); NEUTROPHIL # 2.9 10^3/ul (1.6-7.5); NEUTROPHILS % 50.9 % (39.0-77.0); PLATELET COUNT 111 10^3/UL (140-415); RED BLOOD COUNT 2.84 10^6/ul (4.70-6.10); RED CELL DISTRIBUTION WIDTH 17.6 % (11.5-14.5); WHITE BLOOD COUNT 5.6 10^3/ul (4.8-10.8)
[2016-09-10 08:25] LABS: ALBUMIN 2.1 g/dl (3.3-4.9)
[2016-09-10 08:28] LABS: BILIRUBIN,INDIRECT 0.7 mg/dl (0-1.1); BILIRUBIN,TOTAL 0.7 mg/dl (0.2-1.3); CALCIUM 7.2 mg/dl (8.4-10.2); CREATININE 0.67 mg/dl (0.61-1.24); POTASSIUM 3.5 mmol/L (3.5-5.1); TOTAL PROTEIN 5.2 g/dl (6.1-8.1)
[2016-09-10] MEDS: TAMSULOSIN (SR) 0.4 MG CAP PO SCH (08:49)
[2016-09-10] MEDS: FERROUS SULFATE 60 MG/ML 5ML CUP PO SCH (08:49)
[2016-09-10] MEDS: LACTULOSE 30ML CUP PO SCH ×3 (08:49→21:11)
[2016-09-10] MEDS: RIFAXIMIN 550 MG TAB PO SCH ×2 (08:49→21:11)
--- NOTE | 2016-09-10 12:53 | CONS ---
Date/Time of Note Date/Time of Note DATE: 09/10/16 TIME: 12:48 Consult Date/Type/Reason Admit Date/Time Sep 02, 2016 at 18:10 Initial Consult Date Type of Consultation: Gastroenterology Subjective Course reviewed with nursing staff inquired about the transfer to higher level of care ,case management is working the paper work to [facility] Patient is alert but forgetful no episode of melena present hemoglobin 7.8 no hematemesis nor hematochezia EGD 09/03/16 Large fundal gastric varices with stigmata of recent bleeding. . Small, clinically insignificant, esophageal varices. No other potential bleeding source identified in the upper gastrointestinal tract. Objective Vital Signs Date Time Temp Pulse Resp B/P Pulse Ox O2 Delivery O2 Flow Rate FiO2 09/10/16 12:22 92 09/10/16 11:43 98.4 20 134/61 96 09/06/16 20:00 Room Air Intake and Output 09/09/16 09/09/16 09/10/16 15:00 23:00 07:00 Intake Total 860 ml 1190 ml Output Total 1000 ml 800 ml Balance -140 ml 390 ml Exam Constitutional: awake,alert, well developed Head: normocephalic Neck: non-tender, supple Respiratory: clear to auscultation, normal air movement Cardiovascular: nl pulses, regular rate and rhythm Gastrointestinal: bowel sounds, nl liver, spleen, non-tender, soft, surgical scars (midline scar), No ascites, No firm, No hepatomegaly, No mass, No rebound or guarding Musculoskeletal: nl extremities to inspection, Extremities: normal pulses Neurological: alert Results/Medications Result Diagram: 09/10/16 0625 09/10/16 0625 Results 24 hrs Laboratory Tests Test 09/10/16 06:25 White Blood Count 5.6 Red Blood Count 2.84 L Hemoglobin 7.8 L Hematocrit 25.2 L Mean Corpuscular Volume 88.7 Mean Corpuscular Hemoglobin 27.5 L Mean Corpuscular Hemoglobin Concent 31.0 L Red Cell Distribution Width 17.6 H Platelet Count 111 L Mean Platelet Volume 13.0 H Neutrophils % 50.9 Lymphocytes % 35.6 Monocytes % 9.1 Eosinophils % 3.6 Basophils % 0.4 Nucleated Red Blood Cells % 0.0 Neutrophils # 2.9 Lymphocytes # 2.0 Monocytes # 0.5 Eosinophils # 0.2 Basophils # 0.0 Nucleated Red Blood Cells # 0.0 Sodium Level 138 Potassium Level 3.5 Chloride Level 108 Carbon Dioxide Level 27 Anion Gap 7 L Blood Urea Nitrogen 5 L Creatinine 0.67 Glucose Level 85 Calcium Level 7.2 L Total Bilirubin 0.7 Direct Bilirubin 0.00 Indirect Bilirubin 0.7 Aspartate Amino Transf (AST/SGOT) 22 Alanine Aminotransferase (ALT/SGPT) 29 Alkaline Phosphatase 72 Ammonia 45 H Total Protein 5.2 L Albumin 2.1 L Medications Current Medications Octreotide Acetate 1 mg/ Sodium Chloride 100 ml @ 5 mls/hr Q20H IV Last administered on 09/09/16 23:39; Admin Dose 5 MLS/HR; Start 09/02/16 at 18:30 Pantoprazole/ Sodium Chloride (Protonix Iv/NS) 100 ml @ 10 mls/hr Q10H IV Last administered on 09/10/16 06:14; Admin Dose 10 MLS/HR; Start 09/02/16 at 18 :30 Metoclopramide HCl (Reglan) 10 mg Q6 IV Last administered on 09/10/16 12:39; Admin Dose 10 MG; Start 09/03/16 at 00:00 IV Flush (NS 10 ml) 10 ml PRN PRN IV IV PROTOCOL; Start 09/03/16 at 10:30 Alprazolam (Xanax) 0.5 mg Q24H PRN PO ANXIETY Last administered on 09/09/16 21 :36; Admin Dose 0.5 MG; Start 09/03/16 at 10:30 Tamsulosin HCl (Flomax) 0.4 mg DAILY PO Last administered on 09/10/16 08:49; Admin Dose 0.4 MG; Start 09/04/16 at 09:00 Chlordiazepoxide 25 mg 25 mg Q4H PRN PO AGITATION/ANXIETY; Start 09/04/16 at 14 :30 Multivitamins/ Thiamine HCl/ Folic Acid/Sodium Chloride (Mvi-12 Adult/ Vitamin B1/Folic Acid/NS) 1,011.2 ml @ 60 mls/hr Q24H IVPB Last administered on 21:56; Admin Dose 60 MLS/HR; Start 09/04/16 at 20:00 Lorazepam (Ativan) 1 mg Q6H PRN IV AGITATION Last administered on 09/09/16 21: 37; Admin Dose 1 MG; Start 09/05/16 at 00:00 Rifaximin (Xifaxan) 550 mg BID PO Last administered on 09/10/16 08:49; Admin Dose 550 MG; Start 09/06/16 at 11:30 Lactulose (Enulose) 20 gm TID PO Last administered on 09/10/16 12:45; Admin Dose 20 GM; Start 09/07/16 at 13:00 Acetaminophen (Tylenol Tab) 650 mg Q6H PRN PO PAIN AND OR ELEVATED TEMP Last administered on 09/08/16 01:59; Admin Dose 650 MG; Start 09/08/16 at 02:00 Lactulose (Lactulose Enema) 100 ml Q8 [place] Last administered on 09/08/16 14:00; Admin Dose 100 ML; Start 09/08/16 at 14:00 Ferrous Sulfate (Feosol Liquid Cup) 300 mg DAILY PO Last administered on 08:49; Admin Dose 300 MG; Start 09/09/16 at 09:00 Assessment/Plan Additional Assessment/Plan Acute Anemia stable Hemoglobin 7.8 Upper GI bleed Esophageal varices grade 1/4 with no stigmata of bleeding Cirrhosis of liver EGD 09/03/16 Large fundal gastric varices with stigmata of recent bleeding.likely source of bleeding . Small, clinically insignificant, esophageal varices. No other potential bleeding source identified in the upper gastrointestinal trac HX of COPD HX of Alcoholism Plan Referral to tertiary hospital for TIPS Advance diet as tolerated Monitor H and H q 6 transfuse per protocol spoke to case management patient is accepted at [facility] MILENA SPRINGER MD Sep 10, 2016 12:53
--- NOTE | 2016-09-10 14:16 | PN ---
Date/Time of Note Date/Time of Note DATE: 09/10/16 TIME: 14:12 Assessment/Plan VTE Prophylaxis VTE Prophylaxis Intervention: SCD's Lines/Catheters IV Catheter Type (from Nrs): PICC Line Central line still needed: Yes Urinary Cath still in place: Yes Reason Cath still needed: other (indicate) Assessment/Plan Chief Complaint/Hosp Course Assessment and plan 1. acute gastrointestinal bleed, likely secondary to esophageal varices in a patient with an extensive tobacco and alcohol consumption history with probable cirrhosis with portal hypertension Transfer Knitter has been consulted, no new episode of hematemesis nor hematochezia inquired about the transfer to higher level of care ,case management is working on the transfer, waiting for insurance approval EGD 09/03/16: Large fundal gastric varices with stigmata of recent bleeding, Small, clinically insignificant, esophageal varices. continue Protonix 2. Acute anemia Likely secondary to #1, status post transfusion of packed red blood cell, follow hemoglobin hematocrit daily, transfuse as protocol 3. Alcohol dependency Alcohol cessation has been advised, continue on Ativan as needed 4. Acute encephalopathy likely secondary to hepatic encephalopathy, continue lactulose, follow-up ammonia level, no acute changes from yesterday 5. Essential hypertension. Continue to monitor 6. COPD Stable 7. Hypoalbuminemia Stable, continue to monitor We will continue monitor patient closely for recommendation management treatment as clinical course Problems: Subjective 24 Hr Interval Summary Free Text/Dictation Patient is more awake and alert Has been able to tolerate oral intake Ambulate with moderate assist Exam/Review of Systems Vital Signs Vitals Vital Signs Date Time Temp Pulse Resp B/P Pulse Ox O2 Delivery O2 Flow Rate FiO2 09/10/16 12:22 92 09/10/16 11:43 98.4 20 134/61 96 09/06/16 20:00 Room Air Intake and Output 09/09/16 09/09/16 09/10/16 15:00 23:00 07:00 Intake Total 860 ml 1190 ml Output Total 1000 ml 800 ml Balance -140 ml 390 ml Exam General: The patient is well-developed, Not in acute distress. HEENT: Atraumatic, normocephalic. The pupils are equal and round . Neck: Supple with full range of motion. Chest: Normal expansion of the thorax during inspiration Lungs: Clear to auscultation bilaterally Heart: Normal S1-S2, Regular rhythm and rate. Abdomen: Soft , nontender, nondistended , bowel sounds are present. Extremities: Normal to inspection, no edema no cyanosis Neurologic: Normal mental status,The patient is awake, alert and oriented . Results Result Diagram: 09/10/1662409/10/16624 Results 24 hrs Laboratory Tests Test 09/10/16 06:25 White Blood Count 5.6 Red Blood Count 2.84 L Hemoglobin 7.8 L Hematocrit 25.2 L Mean Corpuscular Volume 88.7 Mean Corpuscular Hemoglobin 27.5 L Mean Corpuscular Hemoglobin Concent 31.0 L Red Cell Distribution Width 17.6 H Platelet Count 111 L Mean Platelet Volume 13.0 H Neutrophils % 50.9 Lymphocytes % 35.6 Monocytes % 9.1 Eosinophils % 3.6 Basophils % 0.4 Nucleated Red Blood Cells % 0.0 Neutrophils # 2.9 Lymphocytes # 2.0 Monocytes # 0.5 Eosinophils # 0.2 Basophils # 0.0 Nucleated Red Blood Cells # 0.0 Sodium Level 138 Potassium Level 3.5 Chloride Level 108 Carbon Dioxide Level 27 Anion Gap 7 L Blood Urea Nitrogen 5 L Creatinine 0.67 Glucose Level 85 Calcium Level 7.2 L Total Bilirubin 0.7 Direct Bilirubin 0.00 Indirect Bilirubin 0.7 Aspartate Amino Transf (AST/SGOT) 22 Alanine Aminotransferase (ALT/SGPT) 29 Alkaline Phosphatase 72 Ammonia 45 H Total Protein 5.2 L Albumin 2.1 L Medications Medications Current Medications Octreotide Acetate 1 mg/ Sodium Chloride 100 ml @ 5 mls/hr Q20H IV Last administered on 09/09/16 23:39; Admin Dose 5 MLS/HR; Start 09/02/16 at 18:30 Pantoprazole/ Sodium Chloride (Protonix Iv/NS) 100 ml @ 10 mls/hr Q10H IV Last administered on 09/10/16 06:14; Admin Dose 10 MLS/HR; Start 09/02/16 at 18 :30 Metoclopramide HCl (Reglan) 10 mg Q6 IV Last administered on 09/10/16 12:39; Admin Dose 10 MG; Start 09/03/16 at 00:00 IV Flush (NS 10 ml) 10 ml PRN PRN IV IV PROTOCOL; Start 09/03/16 at 10:30 Alprazolam (Xanax) 0.5 mg Q24H PRN PO ANXIETY Last administered on 09/09/16 21 :36; Admin Dose 0.5 MG; Start 09/03/16 at 10:30 Tamsulosin HCl (Flomax) 0.4 mg DAILY PO Last administered on 09/10/16 08:49; Admin Dose 0.4 MG; Start 09/04/16 at 09:00 Chlordiazepoxide 25 mg 25 mg Q4H PRN PO AGITATION/ANXIETY; Start 09/04/16 at 14 :30 Multivitamins/ Thiamine HCl/ Folic Acid/Sodium Chloride (Mvi-12 Adult/ Vitamin B1/Folic Acid/NS) 1,011.2 ml @ 60 mls/hr Q24H IVPB Last administered on 21:56; Admin Dose 60 MLS/HR; Start 09/04/16 at 20:00 Lorazepam (Ativan) 1 mg Q6H PRN IV AGITATION Last administered on 09/09/16 21: 37; Admin Dose 1 MG; Start 09/05/16 at 00:00 Rifaximin (Xifaxan) 550 mg BID PO Last administered on 09/10/16 08:49; Admin Dose 550 MG; Start 09/06/16 at 11:30 Lactulose (Enulose) 20 gm TID PO Last administered on 09/10/16 12:45; Admin Dose 20 GM; Start 09/07/16 at 13:00 Acetaminophen (Tylenol Tab) 650 mg Q6H PRN PO PAIN AND OR ELEVATED TEMP Last administered on 09/08/16 01:59; Admin Dose 650 MG; Start 09/08/16 at 02:00 Lactulose (Lactulose Enema) 100 ml Q8 [place] Last administered on 09/08/16 14:00; Admin Dose 100 ML; Start 09/08/16 at 14:00 Ferrous Sulfate (Feosol Liquid Cup) 300 mg DAILY PO Last administered on 08:49; Admin Dose 300 MG; Start 09/09/16 at 09:00 LINDA GUEVARA MD Sep 10, 2016 14:16
[2016-09-10] MEDS: OCTREOTIDE 1 MG in SOD CHLORIDE 0.9% 95 ML IV SCH (15:50)
--- NOTE | 2016-09-10 16:30 | PDOCDIS ---
Discharge Instructions CONDITION Patient Condition: Fair HOME CARE INSTRUCTIONS: Special Diet: MECHANICAL SOFT DIET ACTIVITY: Activity Restrictions: Special Program Activity Restrictions Comment: with financial legal assistant only LINDA GUEVARA MD Sep 10, 2016 16:30
[2016-09-10] MEDS ORDERED: UDFER PO (16:31)
[2016-09-10] MEDS ORDERED: RIFA550T4 PO (16:31)
[2016-09-10] MEDS ORDERED: Metoclopramide IV (16:31)
[2016-09-10] MEDS ORDERED: NS IV (16:31)
--- NOTE | 2016-09-10 18:44 | DS ---
DATE OF ADMISSION: 09/02/2016 DATE OF DISCHARGE: 09/10/2016 CONSULTANTS: 1. Dr. Peng Wall. 2. Dr. Tara Russo. PROCEDURE: 1. Emergent esophagogastroduodenoscopy with the finding of grade I/IV esophageal varices with no st igmata. Old clots in the fundus of the stomach greater curvature obscuring this area. No active ac cumulation of blood suggesting active bleeding. 2. Esophagogastroduodenoscopy on 09/03/2016 with large fundal gastric varices with stigmata of rece nt bleeding. Small clinical insignificant esophageal varices. No other potential bleeding source i dentified with the plan of patient is to continue on octreotide and Protonix drip. TIPS should be considered, although unfortunately it is not available at [facility]. At the present time, patient should be referred to a tertiary center for prophylaxis TIPS as he has had at least 1 episo de of major gastrointestinal bleeding. Prognosis is extremely poor for additional episodes of gastr ic variceal bleeding which carries an extremity high mortality. DISCHARGE DIAGNOSES: 1. Acute gastrointestinal bleed, likely secondary to esophageal varices in a patient with extensive tobacco and alcohol consumption with a history of probably cirrhosis and portal hypertension. Dionte roenterology was consulted. The patient is status post EGD with large fundal gastric varices with s tigmata of recent bleeding. Continue Protonix. The patient will be transferred to higher level of care for TIPS. 2. Acute anemia secondary to #1, status post transfusion. 3. Alcohol dependency. ____. The patient has been placed on Ativan, Librium, and banana bag. 4. Acute encephalopathy, resolved, status post Librium and lactulose. 5. Hepatic encephalopathy as above. 6. History of ____, stable. 7. Hyponatremia, stable. MEDICATIONS: 1. Banana bag. 2. Octreotide. 3. IV Protonix. 4. Tylenol. 5. Xanax. 6. Librium. 7. Ferrous sulfate. 8. Lactulose. 9. Ativan 10. Reglan. 11. Rifaximin. 12. Flomax. ALLERGIES: NO KNOWN DRUG ALLERGIES. LABORATORY DATA: WBC 5.6, hemoglobin 7.9, hematocrit 25.2, platelets 111. Sodium 138, potassium 3. 5, chloride 108, bicarbonate 27, BUN 5, creatinine 0.67, glucose 85, calcium 7.2. Albumin 2.1. Amm onia level 45. HOSPITAL COURSE: This is a 61-year-old gentleman with past medical history of alcoholic abuse, hepa tic encephalopathy, cirrhosis, hypertension, GI bleed, previously hospitalized at [facility] secondary to GI bleed, who presented to [facility] emergency room having marked weaknes s, malaise, black melenic stool. On admission, hemoglobin was 4. The patient was admitted to ICU, was typed and crossed and transfused a total of 4 units of packed red blood cells during that evenin g. Gastroenterology was consulted. The patient got a PICC line. The patient was started on octreo tide and IV PPI. After optimizing the patient medically, the patient was taken to the GI lab for em ergent esophagogastroduodenoscopy which showed grade I/IV esophageal varices with no stigmata, old c lot in the fundus of the stomach greater curvature obscuring the area. The patient was continued on octreotide and IV PPI, which he was continued to be monitored in ICU. He continued to have 1 more episode of GI bleed and he was taken again to GI lab for emergent endoscopy, the finding of large fu ndal gastric varices with stigmata of recent bleeding. The patient was continued on octreotide and Protonix drip. As per creative services writer, TIPS should be considered. Unfortunately at [facility] the present time this is not available. The patient was referred to a tertiary [facility] ter to perform TIPS secondary to his condition and his high chance of having esophageal varices blee d again. The patient at this time has been continued on aggressive medical management, IV fluid, ba markus bag. He has been seen and evaluated by physical therapy. He was found to be encephalopathic, this is likely secondary to elevated ammonia and ____ hepatic encephalopathy. He was placed on rect al lactulose and was transitioned to oral lactulose when he was able to tolerate p.o. intake. At th is time, the patient is awake and alert. He was able to participate with physical therapy. He is a ble to follow complex commands. At this time, the patient will be transferred to [facility] for further evaluation and will be seen and evaluated by gastroenterology for a TIPS procedure. Dictated By: LINDA MCCLURE/NTS Conf#: [id number] DID#: [id number]
[2016-09-10] MEDS: MULTIVITAMINS 10 ML, THIAMINE 100 MG, FOLIC ACID 1 MG in SOD CHLORIDE 0.9% 1,000 ML IVPB SCH (21:11)
[2016-09-10] MEDS: ALPRAZOLAM 0.5 MG TAB PO PRN (22:23)
[2016-09-11] VITALS (12 sets, daily range): BP systolic 106–154; BP diastolic 55–70; PULSE 82–97; RESP 17–19
[2016-09-11] MEDS: LORAZEPAM 2 MG INJ IV PRN ×2 (00:21→20:38)
[2016-09-11] MEDS: METOCLOPRAMIDE 10 MG INJ IV SCH ×4 (00:21→16:24)
[2016-09-11] MEDS: PANTOPRAZOLE IV 80 MG in SOD CHLORIDE 0.9% 100 ML IV SCH (00:22)
[2016-09-11] MEDS: LACTULOSE ENEMA 1,000 ML BTL PR SCH ×3 (05:10→19:41)
[2016-09-11 07:49] LABS: ADD SCAN DIFF NO
[2016-09-11 07:58] LABS: BASOPHILS % 0.5 % (0.0-2.0); EOSINOPHILS # 0.2 10^3/ul (0.0-0.5); EOSINOPHILS % 4.1 % (0.0-7.0); HEMATOCRIT 26.9 % (42.0-52.0); HEMOGLOBIN 8.3 g/dl (14.0-18.0); LYMPHOCYTES # 1.9 10^3/ul (0.8-2.9); LYMPHOCYTES % 31.5 % (15.0-51.0); MEAN CORPUSCULAR HEMOGLOBIN 27.5 pg (29.0-33.0); MEAN CORPUSCULAR HGB CONC 30.9 g/dl (32.0-37.0); MEAN CORPUSCULAR VOLUME 89.1 fl (82.0-101.0); MONOCYTE # 0.6 10^3/ul (0.3-0.9); MONOCYTES % 9.9 % (0.0-11.0); NEUTROPHIL # 3.2 10^3/ul (1.6-7.5); NEUTROPHILS % 53.7 % (39.0-77.0); PLATELET COUNT 118 10^3/UL (140-415); RED BLOOD COUNT 3.02 10^6/ul (4.70-6.10); RED CELL DISTRIBUTION WIDTH 17.5 % (11.5-14.5); WHITE BLOOD COUNT 5.9 10^3/ul (4.8-10.8)
[2016-09-11 08:09] LABS: ALBUMIN 2.4 g/dl (3.3-4.9)
[2016-09-11 08:10] LABS: POTASSIUM 3.6 mmol/L (3.5-5.1)
[2016-09-11 08:12] LABS: ALBUMIN/GLOBULIN RATIO 0.58; BILIRUBIN,INDIRECT 0.7 mg/dl (0-1.1); BILIRUBIN,TOTAL 0.7 mg/dl (0.2-1.3); CREATININE 0.68 mg/dl (0.61-1.24); TOTAL PROTEIN 6.5 g/dl (6.1-8.1)
[2016-09-11 08:13] LABS: CALCIUM 7.7 mg/dl (8.4-10.2)
[2016-09-11] MEDS: RIFAXIMIN 550 MG TAB PO SCH ×2 (09:03→20:19)
[2016-09-11] MEDS: FERROUS SULFATE 60 MG/ML 5ML CUP PO SCH (09:03)
[2016-09-11] MEDS: TAMSULOSIN (SR) 0.4 MG CAP PO SCH (09:03)
[2016-09-11] MEDS: LACTULOSE 30ML CUP PO SCH ×3 (09:03→20:19)
--- NOTE | 2016-09-11 11:05 | PN ---
Date/Time of Note Date/Time of Note DATE: 09/11/16 TIME: 11:01 Assessment/Plan VTE Prophylaxis VTE Prophylaxis Intervention: SCD's Lines/Catheters IV Catheter Type (from Nrsg): PICC Line Central line still needed: Yes Urinary Cath still in place: Yes Reason Cath still needed: urinary retention Assessment/Plan Assessment/Plan Acute Anemia stable Hemoglobin 7.8 Upper GI bleed Esophageal varices grade 1/4 with no stigmata of bleeding Cirrhosis of liver EGD 09/03/16 Large fundal gastric varices with stigmata of recent bleeding.likely source of bleeding . Small, clinically insignificant, esophageal varices. No other potential bleeding source identified in the upper gastrointestinal trac HX of COPD HX of Alcoholism Plan Referral to tertiary hospital for TIPS Advance diet as tolerated Monitor H and H q 6 transfuse per protocol spoke to case management patient is accepted at [facility] instead of [facility] Subjective 24 Hr Interval Summary Free Text/Dictation Course reviewed with nursing staff inquired about the transfer to higher level of care ,case management is working the paper work to [facility] Patient is alert but forgetful no episode of melena present hemoglobin 8.3 no hematemesis nor hematochezia EGD 09/03/16 Large fundal gastric varices with stigmata of recent bleeding. . Small, clinically insignificant, esophageal varices. No other potential bleeding source identified in the upper gastrointestinal tract. Exam/Review of Systems Vital Signs Vitals Vital Signs Date Time Temp Pulse Resp B/P Pulse Ox O2 Delivery O2 Flow Rate FiO2 09/11/16 08:09 92 09/11/16 07:12 98.6 19 154/64 96 Intake and Output 09/10/16 09/10/16 09/11/16 15:00 23:00 07:00 Intake Total 840 ml 250 ml Output Total 1600 ml 1000 ml Balance -760 ml -750 ml Exam Constitutional: awake,, well developed Respiratory: clear to auscultation, normal air movement Cardiovascular: nl pulses, regular rate and rhythm Gastrointestinal: bowel sounds, nl liver, spleen, non-tender, soft, surgical scars (midline scar), No ascites, No firm, No hepatomegaly, No mass, No rebound or guarding Musculoskeletal: nl extremities to inspection, Extremities: normal pulses Results Result Diagram: 09/11/16 0632 09/11/16 0632 Results 24 hrs Laboratory Tests Test 09/11/16 06:32 White Blood Count 5.9 Red Blood Count 3.02 L Hemoglobin 8.3 L Hematocrit 26.9 L Mean Corpuscular Volume 89.1 Mean Corpuscular Hemoglobin 27.5 L Mean Corpuscular Hemoglobin Concent 30.9 L Red Cell Distribution Width 17.5 H Platelet Count 118 L Mean Platelet Volume 13.0 H Neutrophils % 53.7 Lymphocytes % 31.5 Monocytes % 9.9 Eosinophils % 4.1 Basophils % 0.5 Nucleated Red Blood Cells % 0.0 Neutrophils # 3.2 Lymphocytes # 1.9 Monocytes # 0.6 Eosinophils # 0.2 Basophils # 0.0 Nucleated Red Blood Cells # 0.0 Sodium Level 137 Potassium Level 3.6 Chloride Level 105 Carbon Dioxide Level 28 Anion Gap 8 Blood Urea Nitrogen 4 L Creatinine 0.68 Glucose Level 97 Calcium Level 7.7 L Total Bilirubin 0.7 Direct Bilirubin 0.00 Indirect Bilirubin 0.7 Aspartate Amino Transf (AST/SGOT) 30 Alanine Aminotransferase (ALT/SGPT) 31 Alkaline Phosphatase 82 Ammonia 40 H Total Protein 6.5 # Albumin 2.4 L Globulin 4.10 H Albumin/Globulin Ratio 0.58 Medications Medications Current Medications Octreotide Acetate 1 mg/ Sodium Chloride 100 ml @ 5 mls/hr Q20H IV Last administered on 09/10/16 15:50; Admin Dose 5 MLS/HR; Start 09/02/16 at 18:30 Pantoprazole/ Sodium Chloride (Protonix Iv/NS) 100 ml @ 10 mls/hr Q10H IV Last administered on 09/11/16 00:22; Admin Dose 10 MLS/HR; Start 09/02/16 at 18 :30 Metoclopramide HCl (Reglan) 10 mg Q6 IV Last administered on 09/11/16 05:29; Admin Dose 10 MG; Start 09/03/16 at 00:00 IV Flush (NS 10 ml) 10 ml PRN PRN IV IV PROTOCOL; Start 09/03/16 at 10:30 Alprazolam (Xanax) 0.5 mg Q24H PRN PO ANXIETY Last administered on 09/10/16 22 :23; Admin Dose 0.5 MG; Start 09/03/16 at 10:30 Tamsulosin HCl (Flomax) 0.4 mg DAILY PO Last administered on 09/11/16 09:03; Admin Dose 0.4 MG; Start 09/04/16 at 09:00 Chlordiazepoxide 25 mg 25 mg Q4H PRN PO AGITATION/ANXIETY; Start 09/04/16 at 14 :30 Multivitamins/ Thiamine HCl/ Folic Acid/Sodium Chloride (Mvi-12 Adult/ Vitamin B1/Folic Acid/NS) 1,011.2 ml @ 60 mls/hr Q24H IVPB Last administered on 21:11; Admin Dose 60 MLS/HR; Start 09/04/16 at 20:00 Lorazepam (Ativan) 1 mg Q6H PRN IV AGITATION Last administered on 09/11/16 00: 21; Admin Dose 1 MG; Start 09/05/16 at 00:00 Rifaximin (Xifaxan) 550 mg BID PO Last administered on 09/11/16 09:03; Admin Dose 550 MG; Start 09/06/16 at 11:30 Lactulose (Enulose) 20 gm TID PO Last administered on 09/11/16 09:03; Admin Dose 20 GM; Start 09/07/16 at 13:00 Acetaminophen (Tylenol Tab) 650 mg Q6H PRN PO PAIN AND OR ELEVATED TEMP Last administered on 09/08/16 01:59; Admin Dose 650 MG; Start 09/08/16 at 02:00 Lactulose (Lactulose Enema) 100 ml Q8 [place] Last administered on 09/08/16 14:00; Admin Dose 100 ML; Start 09/08/16 at 14:00 Ferrous Sulfate (Feosol Liquid Cup) 300 mg DAILY PO Last administered on 09:03; Admin Dose 300 MG; Start 09/09/16 at 09:00 MILENA SPRINGER MD Sep 11, 2016 11:05
--- NOTE | 2016-09-11 12:23 | PN ---
Date/Time of Note Date/Time of Note DATE: 09/11/16 TIME: 12:19 Assessment/Plan VTE Prophylaxis VTE Prophylaxis Intervention: SCD's Lines/Catheters IV Catheter Type (from Nrsg): PICC Line Central line still needed: Yes (IV access, difficult to maintain peripheral access ) Urinary Cath still in place: Yes Reason Cath still needed: other (indicate) (strict I/O due to liver cirrhosis ) Assessment/Plan Assessment/Plan Acute Anemia stable Hemoglobin 7.8 acute Upper GI bleed 2/2 Esophageal varices grade 1/4 with no stigmata of bleeding Cirrhosis of liver 2/2 alcohol EGD 09/03/16 showed Large fundal gastric varices with stigmata of recent bleeding.likely source of bleeding . Small, clinically insignificant, esophageal varices. No other potential bleeding source identified in the upper gastrointestinal trac HX of COPD HX of Alcoholism Plan: monitor H/H Bp stable pt needs TIPS procedure, Transfer to other hospital for TIPS procedure in process Subjective 24 Hr Interval Summary Free Text/Dictation Hb 8.3, stable, no more GI bleeding Exam/Review of Systems Vital Signs Vitals Vital Signs Date Time Temp Pulse Resp B/P Pulse Ox O2 Delivery O2 Flow Rate FiO2 09/11/16 12:12 87 09/11/16 11:28 98.6 18 109/57 96 Intake and Output 09/10/16 09/10/16 09/11/16 15:00 23:00 07:00 Intake Total 840 ml 250 ml Output Total 1600 ml 1000 ml Balance -760 ml -750 ml Exam awake, alert, no jaundice clear BS S1 S2 RRR no murmur soft, NT no edema Results Result Diagram: 09/11/16 0632 09/11/16 0632 Results 24 hrs Laboratory Tests Test 09/11/16 06:32 White Blood Count 5.9 Red Blood Count 3.02 L Hemoglobin 8.3 L Hematocrit 26.9 L Mean Corpuscular Volume 89.1 Mean Corpuscular Hemoglobin 27.5 L Mean Corpuscular Hemoglobin Concent 30.9 L Red Cell Distribution Width 17.5 H Platelet Count 118 L Mean Platelet Volume 13.0 H Neutrophils % 53.7 Lymphocytes % 31.5 Monocytes % 9.9 Eosinophils % 4.1 Basophils % 0.5 Nucleated Red Blood Cells % 0.0 Neutrophils # 3.2 Lymphocytes # 1.9 Monocytes # 0.6 Eosinophils # 0.2 Basophils # 0.0 Nucleated Red Blood Cells # 0.0 Sodium Level 137 Potassium Level 3.6 Chloride Level 105 Carbon Dioxide Level 28 Anion Gap 8 Blood Urea Nitrogen 4 L Creatinine 0.68 Glucose Level 97 Calcium Level 7.7 L Total Bilirubin 0.7 Direct Bilirubin 0.00 Indirect Bilirubin 0.7 Aspartate Amino Transf (AST/SGOT) 30 Alanine Aminotransferase (ALT/SGPT) 31 Alkaline Phosphatase 82 Ammonia 40 H Total Protein 6.5 # Albumin 2.4 L Globulin 4.10 H Albumin/Globulin Ratio 0.58 Medications Medications Current Medications Octreotide Acetate/Sodium Chloride (Sandostatin/NS) 100 ml @ 5 mls/hr Q20H IV Last administered on 09/10/16 15:50; Admin Dose 5 MLS/HR; Start 09/02/16 at 18: 30 Metoclopramide HCl (Reglan) 10 mg Q6 IV Last administered on 09/11/16 05:29; Admin Dose 10 MG; Start 09/03/16 at 00:00 IV Flush (NS 10 ml) 10 ml PRN PRN IV IV PROTOCOL; Start 09/03/16 at 10:30 Alprazolam (Xanax) 0.5 mg Q24H PRN PO ANXIETY Last administered on 09/10/16 22 :23; Admin Dose 0.5 MG; Start 09/03/16 at 10:30 Tamsulosin HCl (Flomax) 0.4 mg DAILY PO Last administered on 09/11/16 09:03; Admin Dose 0.4 MG; Start 09/04/16 at 09:00 Chlordiazepoxide 25 mg 25 mg Q4H PRN PO AGITATION/ANXIETY; Start 09/04/16 at 14 :30 Multivitamins/ Thiamine HCl/ Folic Acid/Sodium Chloride (Mvi-12 Adult/ Vitamin B1/Folic Acid/NS) 1,011.2 ml @ 60 mls/hr Q24H IVPB Last administered on 21:11; Admin Dose 60 MLS/HR; Start 09/04/16 at 20:00 Lorazepam (Ativan) 1 mg Q6H PRN IV AGITATION Last administered on 09/11/16 00: 21; Admin Dose 1 MG; Start 09/05/16 at 00:00 Rifaximin (Xifaxan) 550 mg BID PO Last administered on 09/11/16 09:03; Admin Dose 550 MG; Start 09/06/16 at 11:30 Lactulose (Enulose) 20 gm TID PO Last administered on 09/11/16 09:03; Admin Dose 20 GM; Start 09/07/16 at 13:00 Acetaminophen (Tylenol Tab) 650 mg Q6H PRN PO PAIN AND OR ELEVATED TEMP Last administered on 09/08/16 01:59; Admin Dose 650 MG; Start 09/08/16 at 02:00 Lactulose (Lactulose Enema) 100 ml Q8 [place] Last administered on 09/08/16 14:00; Admin Dose 100 ML; Start 09/08/16 at 14:00 Ferrous Sulfate (Feosol Liquid Cup) 300 mg DAILY PO Last administered on 09:03; Admin Dose 300 MG; Start 09/09/16 at 09:00 Pantoprazole (Protonix Iv) 40 mg 18 IV ; Start 09/11/16 at 18:00 BAILEY SALAZAR MD Sep 11, 2016 12:23
[2016-09-11] MEDS: PANTOPRAZOLE 40 MG INJ IV SCH (16:24)
[2016-09-11] MEDS: MULTIVITAMINS 10 ML, THIAMINE 100 MG, FOLIC ACID 1 MG in SOD CHLORIDE 0.9% 1,000 ML IVPB SCH (20:22)
[2016-09-11] MEDS: OCTREOTIDE 1 MG in SOD CHLORIDE 0.9% 95 ML IV SCH (22:30)
[2016-09-12] VITALS (12 sets, daily range): BP systolic 121–148; BP diastolic 57–65; PULSE 82–90; RESP 18–19
[2016-09-12] MEDS: METOCLOPRAMIDE 10 MG INJ IV SCH ×5 (00:40→23:28)
[2016-09-12] MEDS: LACTULOSE ENEMA 1,000 ML BTL PR SCH ×3 (03:57→22:00)
[2016-09-12] MEDS: PANTOPRAZOLE 40 MG INJ IV SCH ×2 (05:11→17:03)
[2016-09-12 07:01] LABS: ADD SCAN DIFF NO
[2016-09-12 07:08] LABS: BASOPHILS % 0.4 % (0.0-2.0); EOSINOPHILS # 0.2 10^3/ul (0.0-0.5); HEMATOCRIT 25.8 % (42.0-52.0); HEMOGLOBIN 7.9 g/dl (14.0-18.0); LYMPHOCYTES # 1.6 10^3/ul (0.8-2.9); LYMPHOCYTES % 32.8 % (15.0-51.0); MEAN CORPUSCULAR HEMOGLOBIN 27.6 pg (29.0-33.0); MEAN CORPUSCULAR HGB CONC 30.6 g/dl (32.0-37.0); MEAN CORPUSCULAR VOLUME 90.2 fl (82.0-101.0); MEAN PLATELET VOLUME 13.2 fl (7.4-10.4); MONOCYTE # 0.5 10^3/ul (0.3-0.9); MONOCYTES % 10.8 % (0.0-11.0); NEUTROPHIL # 2.4 10^3/ul (1.6-7.5); NEUTROPHILS % 51.8 % (39.0-77.0); PLATELET COUNT 105 10^3/UL (140-415); RED BLOOD COUNT 2.86 10^6/ul (4.70-6.10); RED CELL DISTRIBUTION WIDTH 17.4 % (11.5-14.5); WHITE BLOOD COUNT 4.7 10^3/ul (4.8-10.8)
[2016-09-12 07:14] LABS: INR 1.4; PROTIME 17.2 Sec (12.2-14.2); PT RATIO 1.3
[2016-09-12 07:15] LABS: ALBUMIN 2.2 g/dl (3.3-4.9); POTASSIUM 3.3 mmol/L (3.5-5.1)
[2016-09-12 07:17] LABS: BILIRUBIN,INDIRECT 0.5 mg/dl (0-1.1); BILIRUBIN,TOTAL 0.5 mg/dl (0.2-1.3); CREATININE 0.71 mg/dl (0.61-1.24)
[2016-09-12 07:18] LABS: ALBUMIN/GLOBULIN RATIO 0.64; CALCIUM 7.5 mg/dl (8.4-10.2); TOTAL PROTEIN 5.6 g/dl (6.1-8.1)
[2016-09-12] MEDS: FERROUS SULFATE 60 MG/ML 5ML CUP PO SCH (08:52)
[2016-09-12] MEDS: LACTULOSE 30ML CUP PO SCH ×3 (08:52→21:15)
[2016-09-12] MEDS: RIFAXIMIN 550 MG TAB PO SCH ×2 (08:52→21:15)
[2016-09-12] MEDS: TAMSULOSIN (SR) 0.4 MG CAP PO SCH (08:53)
--- NOTE | 2016-09-12 10:49 | PN ---
Date/Time of Note Date/Time of Note DATE: 09/12/16 TIME: 10:45 Assessment/Plan VTE Prophylaxis VTE Prophylaxis Intervention: SCD's Lines/Catheters IV Catheter Type (from Nrs): PICC Line Central line still needed: Yes Urinary Cath still in place: Yes Reason Cath still needed: urinary retention Assessment/Plan Assessment/Plan Assessment/Plan Acute Anemia Hemoglobin 7.9 Upper GI bleed Esophageal varices grade 1/4 with no stigmata of bleeding Cirrhosis of liver EGD 09/03/16 Large fundal gastric varices with stigmata of recent bleeding.likely source of bleeding . Small, clinically insignificant, esophageal varices. No other potential bleeding source identified in the upper gastrointestinal trac HX of COPD HX of Alcoholism Plan Referral to [facility] for TIPS Advance diet as tolerated Monitor H and H q 6 transfuse per protocol spoke to case management ,awaiting transfer to [facility] Subjective 24 Hr Interval Summary Free Text/Dictation Course reviewed with nursing staff inquired about the transfer to higher level of care ,case management is working the paper work to [facility] Patient is alert but forgetful no episode of melena present hemoglobin 7.9 no hematemesis nor hematochezia EGD 09/03/16 Large fundal gastric varices with stigmata of recent bleeding. . Small, clinically insignificant, esophageal varices. No other potential bleeding source identified in the upper gastrointestinal tract. Exam/Review of Systems Vital Signs Vitals Vital Signs Date Time Temp Pulse Resp B/P Pulse Ox O2 Delivery O2 Flow Rate FiO2 09/12/16 08:12 82 09/12/16 07:13 98.5 18 121/57 94 09/12/16 04:28 Room Air Intake and Output 09/11/16 09/11/16 09/12/16 15:00 23:00 07:00 Intake Total 800 ml 500 ml Output Total 1000 ml 1000 ml Balance -200 ml -500 ml Exam Constitutional: alert Respiratory: clear to auscultation, normal air movement Cardiovascular: nl pulses, regular rate and rhythm Gastrointestinal: bowel sounds, distended, non-tender, soft, No mass, No rebound or guarding, No tender Musculoskeletal: nl extremities to inspection Results Result Diagram: 09/12/16 0640 09/12/16 0640 Results 24 hrs Laboratory Tests Test 09/12/16 06:40 White Blood Count 4.7 #L Red Blood Count 2.86 L Hemoglobin 7.9 L Hematocrit 25.8 L Mean Corpuscular Volume 90.2 Mean Corpuscular Hemoglobin 27.6 L Mean Corpuscular Hemoglobin Concent 30.6 L Red Cell Distribution Width 17.4 H Platelet Count 105 L Mean Platelet Volume 13.2 H Neutrophils % 51.8 Lymphocytes % 32.8 Monocytes % 10.8 Eosinophils % 4.0 Basophils % 0.4 Nucleated Red Blood Cells % 0.0 Neutrophils # 2.4 Lymphocytes # 1.6 Monocytes # 0.5 Eosinophils # 0.2 Basophils # 0.0 Nucleated Red Blood Cells # 0.0 Prothrombin Time 17.2 H Prothrombin Time Ratio 1.3 INR International Normalized Ratio 1.40 Activated Partial Thromboplast Time 32.0 Sodium Level 136 Potassium Level 3.3 L Chloride Level 105 Carbon Dioxide Level 28 Anion Gap 6 L Blood Urea Nitrogen 6 L Creatinine 0.71 Glucose Level 186 Calcium Level 7.5 L Total Bilirubin 0.5 Direct Bilirubin 0.00 Indirect Bilirubin 0.5 Aspartate Amino Transf (AST/SGOT) 25 Alanine Aminotransferase (ALT/SGPT) 25 Alkaline Phosphatase 69 Ammonia 50 H Total Protein 5.6 L Albumin 2.2 L Globulin 3.40 H Albumin/Globulin Ratio 0.64 Medications Medications Current Medications Octreotide Acetate/Sodium Chloride (Sandostatin/NS) 100 ml @ 5 mls/hr Q20H IV Last administered on 09/10/16 15:50; Admin Dose 5 MLS/HR; Start 09/02/16 at 18: 30 Metoclopramide HCl (Reglan) 10 mg Q6 IV Last administered on 09/12/16 05:11; Admin Dose 10 MG; Start 09/03/16 at 00:00 IV Flush (NS 10 ml) 10 ml PRN PRN IV IV PROTOCOL; Start 09/03/16 at 10:30 Alprazolam (Xanax) 0.5 mg Q24H PRN PO ANXIETY Last administered on 09/10/16 22 :23; Admin Dose 0.5 MG; Start 09/03/16 at 10:30 Tamsulosin HCl (Flomax) 0.4 mg DAILY PO Last administered on 09/12/16 08:53; Admin Dose 0.4 MG; Start 09/04/16 at 09:00 Chlordiazepoxide 25 mg 25 mg Q4H PRN PO AGITATION/ANXIETY Last administered on 09/11/16 20:19; Admin Dose 25 MG; Start 09/04/16 at 14:30 Multivitamins/ Thiamine HCl/ Folic Acid/Sodium Chloride (Mvi-12 Adult/ Vitamin B1/Folic Acid/NS) 1,011.2 ml @ 60 mls/hr Q24H IVPB Last administered on 20:22; Admin Dose 60 MLS/HR; Start 09/04/16 at 20:00 Lorazepam (Ativan) 1 mg Q6H PRN IV AGITATION Last administered on 09/11/16 20: 38; Admin Dose 1 MG; Start 09/05/16 at 00:00 Rifaximin (Xifaxan) 550 mg BID PO Last administered on 09/12/16 08:52; Admin Dose 550 MG; Start 09/06/16 at 11:30 Lactulose (Enulose) 20 gm TID PO Last administered on 09/12/16 08:52; Admin Dose 20 GM; Start 09/07/16 at 13:00 Acetaminophen (Tylenol Tab) 650 mg Q6H PRN PO PAIN AND OR ELEVATED TEMP Last administered on 09/08/16 01:59; Admin Dose 650 MG; Start 09/08/16 at 02:00 Lactulose (Lactulose Enema) 100 ml Q8 CO Last administered on 09/08/16 14:00; Admin Dose 100 ML; Start 09/08/16 at 14:00 Ferrous Sulfate (Feosol Liquid Cup) 300 mg DAILY PO Last administered on 08:52; Admin Dose 300 MG; Start 09/09/16 at 09:00 Pantoprazole (Protonix Iv) 40 mg 06,18 IV Last administered on 09/12/16 05:11 ; Admin Dose 40 MG; Start 09/11/16 at 18:00 MILENA SPRINGER MD Sep 12, 2016 10:49
--- NOTE | 2016-09-12 16:02 | DS ---
DATE OF ADMISSION: 09/02/2016 DATE OF DISCHARGE: 09/12/2016 [facility]: 1. Dr. Peng Wall 2. Dr. Russo. Please see my discharge summary which was done on 09/02/2016. PROCEDURES: Emergent esophagogastroduodenoscopy with the finding of grade I/IV esophageal varices wi th no stigmata. Esophagogastroduodenoscopy on 09/03/2016 with a large fundal gastric varices with stigmata and recen t bleeding. DISCHARGE: 1. Acute gastrointestinal bleed. 2. Acute anemia. 3. Alcohol dependency. 4. Acute encephalopathy, resolved. 5. Hepatic encephalopathy. 6. Hypernatremia. 7. Essential hypertension. 8. Chronic obstructive pulmonary disease. 9. Hypoalbuminemia. MEDICATIONS: 1. Banana bag. 2. Octreotide 3. Protonix. 4. Tylenol. 5. Xanax. 6. Librium. 7. Ferrous sulfate. 8. Lactulose. 9. Ativan. 10. Reglan. 11. Rifaximin. 12. Flomax. ALLERGIES: NO KNOWN DRUG ALLERGIES. DISPOSITION: To [facility]. HOSPITAL COURSE: Please see my discharge dictation which was done on 09/02/2016. This is an addendu m for that discharge summary. The patient's discharge was held. Patient was supposed to be transfer red to [facility] for TIPS, although unfortunately secondary to insurance purposes and [facility] does not have a facility for the TIPS procedure, as per patient's insurance the patient w as referred to the [facility] and the patient has been accepted at the [facility] for a TIPS procedure. At this time, patient is medically stable for discharge. His labs are as follows: WBC 4.7, hemoglobin 7.9, hematocrit 25.8, platelets 105. Sodium 136, pota ssium 3.3, chloride 105, bicarbonate 26, BUN 6, creatinine 0.71, glucose 186, calcium 7.5. Ammonia level 50, albumin 2.2. The rest of LFTs all within normal limits. VITAL SIGNS: Temperature 98, pulse 87, respiration 18, blood pressure 148/60, oxygen saturation 96%. CONDITION: Fair. Dictated By: LINDA MCCLURE/NTS Conf#: [id number] [facility]#: [id number]
[2016-09-12] MEDS: OCTREOTIDE 1 MG in SOD CHLORIDE 0.9% 95 ML IV SCH (17:04)
[2016-09-12] MEDS: MULTIVITAMINS 10 ML, THIAMINE 100 MG, FOLIC ACID 1 MG in SOD CHLORIDE 0.9% 1,000 ML IVPB SCH (21:15)
[2016-09-12] MEDS: ALPRAZOLAM 0.5 MG TAB PO PRN (21:18)
[2016-09-12] MEDS: LORAZEPAM 2 MG INJ IV PRN (23:23)
[2016-09-13] VITALS (12 sets, daily range): BP systolic 111–142; BP diastolic 58–71; PULSE 85–95; RESP 18–19
[2016-09-13] MEDS: PANTOPRAZOLE 40 MG INJ IV SCH ×2 (05:53→18:55)
[2016-09-13] MEDS: METOCLOPRAMIDE 10 MG INJ IV SCH ×3 (05:53→18:55)
[2016-09-13] MEDS: LACTULOSE ENEMA 1,000 ML BTL PR SCH ×2 (05:54→14:00)
[2016-09-13] MEDS: RIFAXIMIN 550 MG TAB PO SCH (08:34)
[2016-09-13] MEDS: TAMSULOSIN (SR) 0.4 MG CAP PO SCH (08:34)
[2016-09-13] MEDS: LACTULOSE 30ML CUP PO SCH ×2 (08:34→13:01)
[2016-09-13] MEDS: FERROUS SULFATE 60 MG/ML 5ML CUP PO SCH (08:34)
--- NOTE | 2016-09-13 14:15 | PN ---
Date/Time of Note Date/Time of Note DATE: 09/13/16 TIME: 14:13 Assessment/Plan VTE Prophylaxis VTE Prophylaxis Intervention: SCD's Lines/Catheters IV Catheter Type (from Nrs): PICC Line Central line still needed: Yes Urinary Cath still in place: Yes Reason Cath still needed: other (indicate) Assessment/Plan Chief Complaint/Hosp Course Assessment and plan 1. acute gastrointestinal bleed, likely secondary to esophageal varices in a patient with an extensive tobacco and alcohol consumption history with probable cirrhosis with portal hypertension [facility] has been consulted, no new episode of hematemesis nor hematochezia inquired about the transfer to higher level of care ,case management is working on the transfer, waiting for insurance approval EGD 09/03/16: Large fundal gastric varices with stigmata of recent bleeding, Small, clinically insignificant, esophageal varices. continue Protonix 2. Acute anemia Likely secondary to #1, status post transfusion of packed red blood cell, follow hemoglobin hematocrit daily, transfuse as protocol 3. Alcohol dependency Alcohol cessation has been advised, continue on Ativan as needed 4. Acute encephalopathy likely secondary to hepatic encephalopathy, continue lactulose, follow-up ammonia level, no acute changes from yesterday 5. Essential hypertension. Continue to monitor 6. COPD Stable 7. Hypoalbuminemia Stable, continue to monitor Patient is planned to be transferred to [facility] TIPS procedure Patient is medically stable to be transferred to [facility] Problems: Subjective 24 Hr Interval Summary Free Text/Dictation Patient was supposed to be discharged on 09/12/2016 to [facility] although unfortunately due to lack of bed at the facility and patient transfer was delayed He is awake alert and oriented Able to tolerate oral intake Denies any chest pain or shortness of breath Exam/Review of Systems Vital Signs Vitals Vital Signs Date Time Temp Pulse Resp B/P Pulse Ox O2 Delivery O2 Flow Rate FiO2 09/13/16 12:07 88 09/13/16 11:13 97.9 18 125/58 95 09/12/16 04:28 Room Air Intake and Output 09/12/16 09/12/16 09/13/16 15:00 23:00 07:00 Intake Total 950 ml 350 ml Output Total 850 ml 900 ml Balance 100 ml -550 ml Exam General: The patient is well-developed, Not in acute distress. HEENT: Atraumatic, normocephalic. The pupils are equal and round . Neck: Supple with full range of motion. Chest: Normal expansion of the thorax during inspiration Lungs: Clear to auscultation bilaterally Heart: Normal S1-S2, Regular rhythm and rate. Abdomen: Soft , nontender, nondistended , bowel sounds are present. Extremities: Normal to inspection, no edema no cyanosis Neurologic: Normal mental status,The patient is awake, alert and oriented . Results Result Diagram: 09/12/16 0640 09/12/16 0640 Results 24 hrs Laboratory Tests Test 09/13/16 07:15 Ammonia 73 H Medications Medications Current Medications Octreotide Acetate/Sodium Chloride (Sandostatin/NS) 100 ml @ 5 mls/hr Q20H IV Last administered on 09/12/16 17:04; Admin Dose 5 MLS/HR; Start 09/02/16 at 18: 30 Metoclopramide HCl (Reglan) 10 mg Q6 IV Last administered on 09/13/16 13:01; Admin Dose 10 MG; Start 09/03/16 at 00:00 IV Flush (NS 10 ml) 10 ml PRN PRN IV IV PROTOCOL; Start 09/03/16 at 10:30 Alprazolam (Xanax) 0.5 mg Q24H PRN PO ANXIETY Last administered on 09/12/16 21 :18; Admin Dose 0.5 MG; Start 09/03/16 at 10:30 Tamsulosin HCl (Flomax) 0.4 mg DAILY PO Last administered on 09/13/16 08:34; Admin Dose 0.4 MG; Start 09/04/16 at 09:00 Chlordiazepoxide 25 mg 25 mg Q4H PRN PO AGITATION/ANXIETY Last administered on 09/11/16 20:19; Admin Dose 25 MG; Start 09/04/16 at 14:30 Multivitamins/ Thiamine HCl/ Folic Acid/Sodium Chloride (Mvi-12 Adult/ Vitamin B1/Folic Acid/NS) 1,011.2 ml @ 60 mls/hr Q24H IVPB Last administered on 21:15; Admin Dose 60 MLS/HR; Start 09/04/16 at 20:00 Lorazepam (Ativan) 1 mg Q6H PRN IV AGITATION Last administered on 09/12/16 23: 23; Admin Dose 1 MG; Start 09/05/16 at 00:00 Rifaximin (Xifaxan) 550 mg BID PO Last administered on 09/13/16 08:34; Admin Dose 550 MG; Start 09/06/16 at 11:30 Lactulose (Enulose) 20 gm TID PO Last administered on 09/13/16 13:01; Admin Dose 20 GM; Start 09/07/16 at 13:00 Acetaminophen (Tylenol Tab) 650 mg Q6H PRN PO PAIN AND OR ELEVATED TEMP Last administered on 09/08/16 01:59; Admin Dose 650 MG; Start 09/08/16 at 02:00 Lactulose (Lactulose Enema) 100 ml Q8 LA Last administered on 09/08/16 14:00; Admin Dose 100 ML; Start 09/08/16 at 14:00 Ferrous Sulfate (Feosol Liquid Cup) 300 mg DAILY PO Last administered on 08:34; Admin Dose 300 MG; Start 09/09/16 at 09:00 Pantoprazole (Protonix Iv) 40 mg IV Last administered on 09/13/16 05:53 ; Admin Dose 40 MG; Start 09/11/16 at 18:00 LINDA GUEVARA MD Sep 13, 2016 14:15
[2016-09-13] MEDS: OCTREOTIDE 1 MG in SOD CHLORIDE 0.9% 95 ML IV SCH (15:35)
== END 2016-09-13 20:20 | disposition short-term general hospital (02) | DRG 300 ==
LOC: E/R 14:46 → ICU 18:10 → MS4 09-03 21:22 → TEL 09-05 23:54
PROVIDERS: ADMIT Family Medicine; ATTEND Internal Medicine Pulmonary Disease
PROC: 0DJ08ZZ Inspection of Upper Intestinal Tract, Via Natural or Artificial Opening Endoscopic (ICD-10-PCS; 2016-09-02)
PROC: 02HV33Z Insertion of Infusion Device into Superior Vena Cava, Percutaneous Approach (ICD-10-PCS; principal; 2016-09-02 21:30)
PROC: 0DJ08ZZ Inspection of Upper Intestinal Tract, Via Natural or Artificial Opening Endoscopic (ICD-10-PCS; 2016-09-03)
DX: I86.4 Gastric varices (principal); E87.0 Hyperosmolality and hypernatremia; I85.10 Secondary esophageal varices without bleeding; K70.30 Alcoholic cirrhosis of liver without ascites; K92.2 Gastrointestinal hemorrhage, unspecified; D62 Acute posthemorrhagic anemia; K70.40 Alcoholic hepatic failure without coma; E88.09 Other disorders of plasma-protein metabolism, not elsewhere classified; J44.9 Chronic obstructive pulmonary disease, unspecified; F10.20 Alcohol dependence, uncomplicated; G89.29 Other chronic pain; I10 Essential (primary) hypertension; K74.60 Unspecified cirrhosis of liver; Z79.891 Long term (current) use of opiate analgesic
CPT/HCPCS: 36415; 36430; 36569; 71010; 76937; 80048; 80053; 80076; 80306; 80307; 82140; 82270; 82607; 82728; 82746; 82962; 83540; 83690; 83735; 84100; 84484; 85014; 85018; 85025; 85049; 85610; 85670; 85730; 86644; 86850; 86900; 86901; 86920; 87070; 87081; 93005; 96374; 96375; 96376; 97116; 97162; 97530; C1769; C9113; J2060; J2354; J2405; J2765; J3010; J3411; J7030; P9016; P9059